=== PATIENT | female | born 1990 | race Caucasian/White ===

== ENCOUNTER 2021-11-14 13:51 | Outpatient (CLI) | payer OTHER, SELFPAY ==
--- OUTSIDE RECORDS SUMMARY | 2021-11-14 13:57 | XMS_ITS | Clinical Summary ---
:1990 Author Organization [facility] [place] [address] Care Team Providers Name Role Phone Unavailable Primary Care Provider Unavailable Allergies No known active allergies Medications No known medications Active Problems No known active problems Social History Tobacco Use Types Packs/Day Years Used Date Never Assessed Sex Assigned at Date Recorded Not on file Obstetrics History Last Filed Vital Signs Vital Sign Reading Time Taken Comments Blood Pressure 96/62 04/17/2021 8:26 AM WRAPPING MACHINE OPERATOR Pulse 96 04/17/2021 8:26 AM WRAPPING MACHINE OPERATOR Temperature 36.6 ??C (97.8 ??F) 04/17/2021 8:26 AM WRAPPING MACHINE OPERATOR Respiratory Rate 18 04/17/2021 8:26 AM WRAPPING MACHINE OPERATOR Oxygen Saturation 97% 04/17/2021 8:26 AM WRAPPING MACHINE OPERATOR Inhaled Oxygen Concentration - - Weight 63.1 kg (139 lb 3.2 oz) 04/17/2021 8:26 AM WRAPPING MACHINE OPERATOR Height - - Body Mass Index - - Plan of Treatment Health Maintenance Due Date Last Done Comments Tdap 02/19/2003 Depression screening for age 12+ 2004 BMI (ht and wt on same day) for age 18+ 02/19/2010 Hepatitis C screening for age 18-79 02/19/2010 Tetanus booster 2012 COVID-19 vaccine series (3 - Booster for 03/26/2021 021, 09/26/2020 Moderna series) Influenza for age 9-49 11/01/2021 Pap test for age 21-65 02/02/2023 02/03/2020 Results Not on filefrom Last 3 Months Insurance Payer Benefit Plan / Subscriber ID Effective Dates Phone Addre ss Type Group MEDICA MEDICA CHOICE [id number] 2021-Present [address] [address] [place] [address] Guarantor Name Account Type Relation to Date of Phone Billing Address Patient Diandra,Katherine J Personal/Family Self 1990 [address] [facility] ([place]) [place] [address]
--- NOTE | 2021-11-14 14:00 | CRLHL7_ITS ---
For Patients: As a result of the Century Cures Act, medical imaging exams and procedure reports are released immediately into your electronic medical record. You may view this report before your referring provider. If you have questions, please contact your health care provider. INDICATION: Irregular cycles after . Dating and viability. LMP 09/12/2021. COMPARISON: None. TECHNIQUE: Real-time freeman-scale imaging of the pelvis was performed. FINDINGS: Sonographic imaging demonstrates a single living intrauterine gestation. The embryo has a regular cardiac rate measuring 157 beats per minute. The embryo`s crown-rump length measurement of 1.2 cm corresponds to a gestational age of 7 weeks 3 days with a sonographic due date of 06/30/2022. There is a normal-appearing yolk sac. The placenta has not yet developed. No evidence of a perigestational hemorrhage. The cervix appears closed. The right ovary measures 4.6 x 3.1 x 3.9 cm and the left ovary measures 3.2 x 1.7 x 2.1 cm. There is a 3.5 x 2.8 x 3.8 cm thick-walled cyst in the right ovary which likely represents a corpus luteum. No free fluid in the cul-de-sac. IMPRESSION: 1. Single living intrauterine gestation with crown rump length 1.2 cm which corresponds to a gestational age of 7 weeks 3 days with a sonographic due date of 06/30/2022. 2. The clinical gestational age by LMP is 9 weeks 0 days. 3. 3.8 cm corpus luteum in the right ovary. Dictated by Carolyn Sargent MD @ 11/15/2021 2:33:30 AM (Electronically Signed)
== END 2021-11-14 13:52 | disposition home or self-care (01) ==
LOC: US 13:56
PROVIDERS: Visit Provider Registered Nurse
DX: N92.6 Irregular menstruation, unspecified (principal); O34.81 Maternal care for other abnormalities of pelvic organs, first trimester; N83.11 Corpus luteum cyst of right ovary; Z3A.01 Less than 8 weeks gestation of pregnancy
CPT/HCPCS: 76817; 86592; 86703; 86762; 86803; 86850; 86900; 86901; 87086; 87340; 87491; 87591

== ENCOUNTER 2021-12-17 12:26 | Outpatient (CLI) | payer OTHER, SELFPAY ==
--- OUTSIDE RECORDS SUMMARY | 2021-12-17 12:35 | XMS_ITS | Clinical Summary ---
:1990 Author Organization [facility] [place] [address] Care Team Providers Name Role Phone Unavailable Primary Care Provider Unavailable Allergies No known active allergies Medications No known medications Active Problems No known active problems Social History Tobacco Use Types Packs/Day Years Used Date Never Assessed Sex Assigned at Date Recorded Not on file Obstetrics History Last Filed Vital Signs Vital Sign Reading Time Taken Comments Blood Pressure 96/62 04/17/2021 8:26 AM SALES AGENT INSURANCE Pulse 96 04/17/2021 8:26 AM SALES AGENT INSURANCE Temperature 36.6 ??C (97.8 ??F) 04/17/2021 8:26 AM SALES AGENT INSURANCE Respiratory Rate 18 04/17/2021 8:26 AM SALES AGENT INSURANCE Oxygen Saturation 97% 04/17/2021 8:26 AM SALES AGENT INSURANCE Inhaled Oxygen Concentration - - Weight 63.1 kg (139 lb 3.2 oz) 04/17/2021 8:26 AM SALES AGENT INSURANCE Height - - Body Mass Index - - Plan of Treatment Health Maintenance Due Date Last Done Comments Tdap 02/19/2003 Depression screening for age 12+ 2004 BMI (ht and wt on same day) for age 18+ 02/19/2010 Hepatitis C screening for age 18-79 02/19/2010 Tetanus booster 2012 COVID-19 vaccine series (3 - Booster for 12/19/2020 021, 09/26/2020 Moderna series) Influenza for age 9-49 11/01/2021 Pap test for age 21-65 02/02/2023 02/03/2020 Results Not on filefrom Last 3 Months Insurance Payer Benefit Plan / Subscriber ID Effective Dates Phone Addre ss Type Group MEDICA MEDICA CHOICE [id number] 2021-Present [address] [address] [place] [address] Guarantor Name Account Type Relation to Date of Phone Billing Address Patient Diandra,Katherine J Personal/Family Self 1990 [address] [facility] ([place]) [place] [address]
--- NOTE | 2021-12-17 13:00 | CRLHL7_ITS ---
For Patients: As a result of the Cures Act, medical imaging exams and procedure reports are released immediately into your electronic medical record. You may view this report before your referring provider. If you have questions, please contact your health care provider. Indication: Confirm embryonic demise. Technique: Sonography of the gravid uterus was performed. The study was performed by grayscale Doppler. Transvaginal scanning was performed. Comparison: A prior study dated November 14, 2021. Findings: A pole is identified measuring 1.7 centimeters. No cardiac activity or activity was noted by real-time or by Doppler. The ovaries are normal in size. There is re- demonstration of a corpus luteum cyst of in the right ovary. There is no free fluid in the cul-de-sac. The gestational tissue is abnormal and has a multi-cystic vesicular appearance raising the possibility of gestational trophoblastic disease. Impression: 1. Nonviable intrauterine . A pole is noted measuring 1.7 centimeters without cardiac activity or motion by real-time or by Doppler. 2. Gestational tissue lining the endometrial cavity is abnormal and multi cystic with a somewhat vesicular appearance. This raises the possibility of gestational trophoblastic disease. 3. Corpus luteum cyst of in the right ovary. Dictated by Estrada Mike MD @ 12/17/2021 1:53:15 PM (Electronically Signed)
== END 2021-12-17 12:27 | disposition home or self-care (01) ==
LOC: US 12:26
PROVIDERS: Visit Provider Obstetrics & Gynecology
DX: O02.1 Missed abortion (principal); N83.201 Unspecified ovarian cyst, right side
CPT/HCPCS: 76817

== ENCOUNTER 2021-12-18 12:42 | Day surgery (SDC) | payer OTHER, SELFPAY ==
[2021-12-18 12:59] VITALS: BMI 19.9
[2021-12-18 13:03] VITALS: BP 88/56; PULSE 86; RESP 16; TEMP 37; O2SAT 97
[2021-12-18] MEDS: SODIUM CHLORIDE 0.9 % (FLUSH) 10 ML SYRINGE IVF (13:30)
[2021-12-18] MEDS: LACTATED RINGERS 1000 ML 1,000 ML 100 ML IV ×2 (13:30→16:03)
[2021-12-18 13:58] LABS: Hemoglobin* 13.6 gm/dL (12.0-16.0)
[2021-12-18] MEDS: DOXYCYCLINE HYCLATE 100 MG CAPSULE 200 MG PO (14:45)
[2021-12-18] MEDS: LIDOCAINE 1% MDV 20 ML INJECTION (16:05)
[2021-12-18 16:30] VITALS: BP 93/83; PULSE 85; RESP 16; TEMP 37; O2SAT 99
--- NOTE | 2021-12-18 16:40 | W.ANESCHARGE ---
Anesthesia Charges Start Date/Time Anesthesia Start Date: 12/18/21 Anesthesia Start Time: 15:42 Stop Date/Time Anesthesia Stop Date: 12/18/21 Anesthesia Stop Time: 16:32 Summary Emergency: No
--- NOTE | 2021-12-18 16:40 | W.PM.GYNPROC ---
Procedure Note Date Seen: 12/18/21 Procedure Details: Preoperative diagnosis: Missed at 8 weeks by CRL Postoperative diagnosis: Same Procedure: Suction uterine curettage Surgeon: Charla Bonner MD Anesthesia: Monitored anesthesia care, paracervical block IV fluids: 1200 mL crystalloid EBL: 10 mL Urine output: Approximately 10 mL by straight catheterization Findings: 1. Exam under anesthesia revealed a mobile, anteverted uterus that was consistent in size with 8-10 weeks' gestation. There are no palpable adnexal masses. 2. Moderate amount of products of conception returned with suction curettage. Complications: None Procedure in detail: Patient was taken to the operating with IV running. She had received a single oral dose of doxycycline in preoperative prophylaxis. She was placed in dorsal lithotomy position. Monitored anesthesia care was administered. She was prepped and draped in the usual sterile fashion. Her bladder was straight catheterized. Exam under anesthesia was performed for the above-noted findings. Speculum was inserted. Cervix was grasped along its anterior lip with a single-tooth tenaculum. Paracervical block was performed with a total of 10 mL of 1% lidocaine. The cervix was serially dilated to 10 Albanian. A size 9 rigid suction cannula was then passed through the cervix to the uterine fundus. Suction was applied, and the suction cannula was withdrawn along the path of insertion. This was repeated 2 more times, without obvious return of products of conception after the last pass. Thereafter, sharp curettage was performed circumferentially, and a gritty texture was noted throughout. Minimal tissue was obtained with curettings. Procedure was deemed complete. The tenaculum was removed from the anterior lip the cervix. Hemostasis of the right cervical puncture site from the tenaculum was treated with silver nitrate. The puncture site on the left cervix continued to bleed, and this was successfully addressed with a single [id number] suture of 2-0 Vicryl. The speculum was then removed from the vagina. Patient tolerated procedure well and was taken recovery area in stable condition.
[2021-12-18 16:45] VITALS: BP 109/99; PULSE 64; RESP 16; TEMP 37; O2SAT 99
[2021-12-18 17:00] VITALS: BP 100/73; PULSE 68; RESP 16; TEMP 37; O2SAT 100
[2021-12-18 17:15] VITALS: BP 107/72; PULSE 68; RESP 16; TEMP 37; O2SAT 100
[2021-12-18 17:30] VITALS: BP 106/72; PULSE 68; RESP 16; TEMP 37; O2SAT 100
--- NOTE | 2021-12-18 18:40 | PC.NURSE ---
shift note [id number] Pt. up to floor recovering from DNC from SDS, pt. alert and oriented x4, accompanied by spouse. Pt. rated 0/10 pain, no N/V/SOB or dizziness. Pt. voided well. Tolerated ice chips, water and some food. Discharge instructions given and signed. Pt's IV removed intact. Pt. discharged to home at 1820 via wheelchair accompanied by spouse.
== END 2021-12-18 18:20 | disposition home or self-care (01) ==
LOC: OR 12:42 → MEDSURG 16:40
PROVIDERS: Visit Provider Obstetrics & Gynecology
PROC: (CPT 59820; principal; 2021-12-18 13:00)
DX: O02.1 Missed abortion (principal); Z3A.08 8 weeks gestation of pregnancy
CPT/HCPCS: 59820; 00940; 01965; 36415; 85018; 86850; 86900; 86901; 88271; 88275; 88305; 88342; A9270; J1100; J1885; J2250; J2405; J2704; J3010; J7120

== ENCOUNTER 2021-12-21 11:47 | Outpatient (CLI) | payer OTHER, SELFPAY ==
--- OUTSIDE RECORDS SUMMARY | 2021-12-21 12:00 | XMS_ITS | Clinical Summary ---
:1990 Author Organization [facility] [place] [address] Care Team Providers Name Role Phone Unavailable Primary Care Provider Unavailable Allergies No known active allergies Medications No known medications Active Problems No known active problems Encounters Date Type Specialty Care Team Description 12/19/2021 Lab Requisition Charla Bonner MD from Last 3 Months Social History Tobacco Use Types Packs/Day Years Used Date Never Assessed Sex Assigned at Date Recorded Not on file Obstetrics History Last Filed Vital Signs Vital Sign Reading Time Taken Comments Blood Pressure 96/62 04/17/2021 8:26 AM VEGETABLE THINNER Pulse 96 04/17/2021 8:26 AM VEGETABLE THINNER Temperature 36.6 ??C (97.8 ??F) 04/17/2021 8:26 AM VEGETABLE THINNER Respiratory Rate 18 04/17/2021 8:26 AM VEGETABLE THINNER Oxygen Saturation 97% 04/17/2021 8:26 AM VEGETABLE THINNER Inhaled Oxygen Concentration - - Weight 63.1 kg (139 lb 3.2 oz) 04/17/2021 8:26 AM VEGETABLE THINNER Height - - Body Mass Index - - Plan of Treatment Health Maintenance Due Date Last Done Comments Tdap 02/19/2003 Depression screening for age 12+ 2004 BMI (ht and wt on same day) for age 18+ 02/19/2010 Hepatitis C screening for age 18-79 02/19/2010 Tetanus booster 2012 COVID-19 vaccine series (3 - Booster for 12/19/202010/24/ 021, 09/26/2020 Moderna series) Influenza for age 9-49 11/01/2021 Pap test for age 21-65 02/02/2023 02/03/2020 Results Not on filefrom Last 3 Months Insurance Payer Benefit Plan / Subscriber ID Effective Dates Phone Addre ss Type Group MEDICA MEDICA CHOICE [id number] 2021-Present [address] [address] [place] [address] Guarantor Name Account Type Relation to Date of Phone Billing Address Patient Katherine Jim Personal/Family Self 1990 [address] [facility] (Home) [place] [address]
== END 2021-12-21 11:48 | disposition home or self-care (01) ==
PROVIDERS: Visit Provider Obstetrics & Gynecology
DX: B99.9 Unspecified infectious disease (principal); N71.9 Inflammatory disease of uterus, unspecified
CPT/HCPCS: 87070; 87186

== ENCOUNTER 2021-12-21 14:37 | Inpatient (IN) | payer OTHER, SELFPAY ==
--- NOTE | 2021-12-21 12:00 | CRLHL7_ITS ---
For Patients: As a result of the Century Cures Act, medical imaging exams and procedure reports are released immediately into your electronic medical record. You may view this report before your referring provider. If you have questions, please contact your health care provider. INDICATION: COMPARISON: 12/17/2021 TECHNIQUE: 2D freeman scale and color Doppler images were acquired of the pelvis using a transabdominal approach. FINDINGS: Sonographic images demonstrate a normal size and smooth outer contour of the uterus. Uterus measures 9.9 cm in length by 7.1 cm in AP diameter by 9.1 cm in transverse dimension. The myometrium has a normal uniform echotexture. Diffuse heterogeneous echotexture within the endometrial cavity noted with reticular morphology and no vascular flow. The endometrium measures up to 4.9 cm. The ovaries are not visualized. There are no suspicious fluid collections within the cul-de-sac. IMPRESSION: Nonvascular hypoechoic material within the endometrial canal most consistent with blood products. Peripheral blood flow noted likely represents reactive blood flow in the adjacent myometrium. Dictated by Edd Soler MD @ 12/21/2021 12:43:16 PM (Electronically Signed)
--- OUTSIDE RECORDS SUMMARY | 2021-12-21 12:20 | XMS_ITS | Clinical Summary ---
:1990 Author Organization [facility] [place] [address] Care Team Providers Name Role Phone Unavailable [...] Comments Blood Pressure 96/62 04/17/2021 8:26 AM THERMOCOUPLE TESTER Pulse 96 04/17/2021 8:26 AM THERMOCOUPLE TESTER Temperature 36.6 ??C (97.8 ??F) 04/17/2021 8:26 AM THERMOCOUPLE TESTER Respiratory Rate 18 04/17/2021 8:26 AM THERMOCOUPLE TESTER Oxygen Saturation 97% 04/17/2021 8:26 AM THERMOCOUPLE TESTER Inhaled Oxygen Concentration - - Weight 63.1 kg (139 lb 3.2 oz) 04/17/2021 8:26 AM THERMOCOUPLE TESTER Height - - Body Mass Index - [...] Addre ss Type Group MEDICA MEDICA CHOICE [id number] 2021-Present [address] [address] [place] [address] Guarantor Name Account Type Relation to Date of Phone Billing Address Patient Katherine Jim Personal/Family Self 1990 [address] [facility] (Home) [place] [address]
[2021-12-21 15:30] VITALS: BP 96/65; PULSE 92; RESP 16; TEMP 37.1; O2SAT 98
--- NOTE | 2021-12-21 15:41 | PC.NURSE ---
Pt. admitted to Center from [facility] () for IV antibiotics and plan for repeat D&C tomorrow at 0900. Pt. presented to clinic for abdominal pain, fever, chills. Ultrasound found some possible retained products/clotting. Pt.'s pain on admission is under good control from oral ibuprofen taken in clinic.
--- NOTE | 2021-12-21 16:13 | PM.GYNHPNOR ---
RECRUITER SPECIALIST - H&P:HPI Medical History of Present Illness Time Seen by Provider: 16:14 Date Seen: 12/21/21 Reason for admission: pelvic pain and other (Endometritis s/p D&C on 12/18 ) Narrative: Katherine Jim is a 31 year old female being admitted for IV antibiotics and D&C in the AM with diagnosis of endometritis after suction D&C on 12/18 for a missed . See clinic note for more details as patient is a direct admit from clinic. Review of Systems Narrative: REVIEW OF SYSTEMS: GENERAL: Fatigue, chills, subjective fevers SKIN: Negative NECK: Negative RESPIRATORY: Negative BREAST: Negative CARDIOVASCULAR: Negative GASTROINTESTINAL: Negative GENITOURINARY: Significant uterine tenderness and purulent discharge MUSCULOSKELETAL: Negative NEUROLOGICAL: Negative PSYCHIATRIC: Negative ENDOCRINE: Negative HEMATOLOGIC: Negative Meds Home Medications and Allergies Allergies Allergy/AdvReac Type Severity Reaction Status Date / Time No Known Allergies Allergy Unknown Verified 12/21/21 10:54 [facility] Active Problems (Updated 12/21/21 @ 17:54 by Destiny Cardona MD) Endometritis (Acute) N71.9 Retained products of conception (Acute) Missed ab (Acute) O02.1 Chronic constipation (Acute) K59.09 Heterozygous factor V Leiden mutation (Acute) D68.51 Medical History (Updated 12/21/21 @ 17:54 by Destiny Cardona MD) Missed ab Thrombosed external hemorrhoids Surgical History H/O wisdom tooth extraction Status post hemorrhoidectomy (09/08/20) Status post primary low transverse section (09/08/20) Family History Mother Factor V Leiden mutation Cardiovascular disease Pulmonary embolism Maternal Grandmother DVT (deep venous thrombosis) Paternal Grandfather DVT (deep venous thrombosis) Father Alcohol dependence Family history of testicular cancer Aunt Alcohol dependence Other FH: thromboembolic disease Social History Narrative: Relationship history: , Spouse Abran Lives with: Abran, son Ronaldo, 2 cats. Education: Bachelor's degree Employment: Paraprofessional Tobacco: No. Lifetime nonsmoker E-cigarettes: No Illicit/recreational drugs: no Alcohol: Yes. 1 serving/day Dietary restriction(s): none Concern for safety at home or work: No Exercise: Jog/walk/yoga/weights 4-5 days/week. Smoking Status: Never smoker Do you use any of these nicotine containing products: None Second hand tobacco smoke exposure: No How often do you have a drink containing alcohol: never How often do you have six or more drinks on one occasion: Never AUDIT-C Alcohol total score: 0 Non-prescribed substance use: denies use Caffeine: Yes (coffee 1 cup daily) Are you using contraception or practicing any form of control: No service: No Reproductive Health History : 2 Para: 1 # of abortions spontaneous: 0 # of abortions induced: 0 RECRUITER SPECIALIST - Exam Physical Exam: Vital signs: Temp Pulse Resp BP Pulse Ox O2 Del Method 98.8 F 92 16 96/65 98 12/21/21 15:30 12/21/21 15:30 12/21/21 15:30 12/21/21 15:30 12/21/21 15:30 12/21/21 15:30 Narrative: Physical exam: General: No acute distress Psych: Alert and oriented x3, full affect HEENT: Normocephalic, atraumatic Heart: Regular rate and rhythm, no murmur rub or gallop Lungs: Clear to auscultation bilaterally Abdomen:? Significant tenderness the suprapubic area and along the uterine contour. Lower extremities:? No edema or erythema Pelvic exam (performed in clinic):? Mons normal, clitoris normal, urethral meatus normal. Labia minora and majora normal in appearance bilaterally. Perineum and anus normal appearance.? Vaginal introitus normal appearance - thick yellow discharge noted at vaginal introitus.? Vagina pink and well rugated with yellow discharge. Cervix pink and without lesion.? Bimanual exam reveals uterus fells full and extremely tender all along the uterine contour.? Positive cervical motion tenderness. Uterus is mobile and anteverted. Size is enlarged to about 9 weeks.? No palpable adnexal masses or tenderness. Assessment and Plan Assessment and plan (1) Endometritis: Status: Acute Assessment and Plan: TVUS today showed:? Nonvascular hypoechoic material within the endometrial canal most consistent with blood clots.? Her endometrial cavity is diffusely heterogenous with reticular morphology.? The endometrium measures up to 4.9 cm. Plan - Labs ordered - Admit for IV antibiotics - IV clindamycin 900 mg Q 8 hours and gentamicin 5 mg/kg Q 24 hours. Would continue IV antibiotics for at least 24 hours - I discussed with my colleague, Dr. Tanvi Barraza, who is on-call tomorrow and review the case with her. We both agreed that Katherine would benefit from another dilation curettage to evacuate the remaining clots. Her surgery is scheduled for 9:00 a.m. tomorrow. D&C will be done under ultrasound guidance. - OR team notified
[2021-12-21] MEDS: LACTATED RINGERS 1000 ML 1,000 ML 125 ML IV (16:32)
[2021-12-21 16:59] LABS: SARS PCR* Negative SARS-CoV-2 (Negative)
[2021-12-21 17:27] LABS: Basophils Absolute Auto 0.02 K/uL (0.00-0.30); Basophils Percent Auto 0.4 % (0.0-3.0); Eosinophils Absolute Auto 0.08 K/uL (0.00-0.50); Eosinophils Percent Auto 1.5 % (0.0-7.0); Hematocrit 34.5 % (33.0-51.0); Hemoglobin* 11.7 gm/dL (12.0-16.0); Immature Granulocytes Abs Auto 0.01 K/uL (0.00-0.30); Lymphocytes Percent Auto 16.7 % (20-44); Mean Corpuscular HGB Conc 34 gm/dL (32-36); Mean Corpuscular Hemoglobin 30 pg (26-34); Mean Corpuscular Volume 89 fL (80-100); Monocytes Percent Auto 10.1 % (0.0-11.0); Neutrophils Absolute Auto 3.88 K/uL (1.7-7.0); Neutrophils Percent Auto 71.1 % (42.0-72.0); Platelet Count* 185 K/uL (140-440); RDW Coefficient of Variation % 13.2 % (11.5-15.5); Red Blood Count 3.86 m/uL (4.00-5.20); White Blood Count* 5.45 K/uL (4.50-11.00)
[2021-12-21 17:31] LABS: Slide Review Reflex No
[2021-12-21 17:41] LABS: Albumin* 4.1 g/dL (3.3-5.0); Chloride* 104 mmol/L (96-114); Sodium* 137 mmol/L (135-149)
[2021-12-21 17:42] LABS: Potassium* 3.8 mmol/L (3.6-5.1)
[2021-12-21 17:44] LABS: Alanine Aminotransferase* 9 U/L (4-35); Alkaline Phosphatase* 48 U/L (40-150); Aspartate Amino Transferase* 15 U/L (12-35); Bilirubin Total* 1.7 mg/dL (0.1-1.5); Blood Urea Nitrogen* 10 mg/dL (5-24); Carbon Dioxide* 24 mmol/L (20-32); Creatinine* 0.7 mg/dL (0.5-1.5); Est. Creatinine Clearance* 110.81; Estimated Glomerular Filt Rate 120 ml/min; Glucose* 101 mg/dL (60-115); Total Protein* 6.9 g/dL (6.0-8.3)
[2021-12-21 17:45] LABS: Calcium* 8.8 mg/dL (8.4-10.6)
[2021-12-21] MEDS: IBUPROFEN 600 MG TABLET PO (19:39)
[2021-12-21 20:00] VITALS: TEMP 37.4
[2021-12-21 23:56] VITALS: PULSE 91; RESP 16
[2021-12-22] VITALS (12 sets, daily range): BP systolic 92–114; BP diastolic 52–84; PULSE 62–91; RESP 14–20; TEMP 36.3–36.8; O2SAT 94–100
[2021-12-22] MEDS: LACTATED RINGERS 1000 ML 1,000 ML 125 ML IV (07:29)
[2021-12-22] MEDS: miSOPROStoL 800 MCG/4 TABLET PR (09:41)
[2021-12-22] MEDS: SILVER NITRATE APPLICATOR 1 EACH STICK..EA. TOPICAL (09:42)
[2021-12-22] MEDS: LIDOCAINE 0.5%-EPI 1:200,000 50 ML VIAL INJECTION (09:44)
--- NOTE | 2021-12-22 09:57 | W.ANESCHARGE ---
Anesthesia Charges Start Date/Time Anesthesia Start Date: 12/22/21 Anesthesia Start Time: 09:14 Stop Date/Time Anesthesia Stop Date: 12/22/21 Anesthesia Stop Time: 09:57 Summary Emergency: Yes
[2021-12-22] MEDS: ACETAMINOPHEN 500 MG TABLET 1000 MG PO (10:24)
[2021-12-22] MEDS: HYDROmorphone 0.5 mg/0.5 ml inj IVP (10:36)
--- NOTE | 2021-12-22 11:00 | W.PM.GYNPROC ---
Procedure Note Date Seen: 12/22/21 Procedure Details: Preop diagnosis: Endometritis, status post suction D&C as management first-trimester missed AB Postop diagnosis: Same, large amount of blood clots of the uterus Name of procedure: Suction dilation and curettage under ultrasound guidance Surgeon: Tanvi [employer] Professor: None Complications: None EBL: About 200mL intrauterine blood clots evacuated, procedure:25mL Drains: None Findings: Speculum exam: Evidence of cervical laceration from 7-10 o clock, this was seen to be bleeding mildly. Evidence of suture material at around 2-3 o clock. Cervix looks closed, no abnormal discharge seen at the moment. After cervical dilation, immediate release of dark old blood seen. Same output obtained from suction, about 200mL of blood clots evacuated from the uterus. Risks, benefits, alternatives, and indications of the procedure were discussed with the patient. She voiced an understanding of the procedure and signed the consent. The patient was taken to the OR were MAC anesthesia was administered without difficulty. She was placed in the dorsal lithotomy position with Austen type stirrups. The patient was prepared and draped in the normal sterile fashion. A bivalved speculum was inserted in the posterior aspect of the vagina. Findings as above. 5 mL of 0.5% Marcaine with Epi was injected in the anterior lip of cervix, the single-tooth tenaculum was used to grasp the anterior lip of the cervix. Under ultrasound guidance, the cervix was sequentially dilated to 9mm utilizing Hegar dilators. A 8 mm suction curette was advanced to the uterine fundus. The suction was then started. The blood clots were evacuated with the curette rotating on the outward movement. This was continued until the endometrium looked again thin and homogenous. Again, always under ultrasound guidance. The tenaculum was removed from the cervix and with pressure and silver nitrate hemostasis was secured on tenaculum puncture sites as well as in the previously described cervical laceration. 800mcg rectal cytotec placed at the end of procedure for prevention of reaccumulation of blood on the endometrial cavity again. The patient tolerated the procedure well. Instrument and sponge counts were correct x2. Patient was taken to the recovery room in a stable condition. The patient will go home after recovering from anesthesia and meeting all the criteria for discharge. She was given the instructions regarding follow-up visit [facility] 2 [facility] and a prescription for pain medication.
[2021-12-22] MEDS: IBUPROFEN 600 MG TABLET PO (13:32)
== END 2021-12-22 15:55 | disposition home or self-care (01) | DRG 779 ==
LOC: OB 14:39
PROVIDERS: Obstetrics & Gynecology; Admitting Provider Obstetrics & Gynecology; Visit Provider Obstetrics & Gynecology
DX: O03.5 Genital tract and pelvic infection following complete or unspecified spontaneous abortion (principal); B95.2 Enterococcus as the cause of diseases classified elsewhere; B96.20 Unspecified Escherichia coli [E. coli] as the cause of diseases classified elsewhere; R10.2 Pelvic and perineal pain
CPT/HCPCS: 59812; 00940; 36415; 76856; 76998; 80053; 84443; 85025; 87635; 99140; A9270; J1100; J1170; J1580; J1885; J2250; J2405; J2704; J3010; J7120; S0077

== ENCOUNTER 2021-12-24 09:27 | Outpatient (CLI) | payer OTHER, SELFPAY ==
--- OUTSIDE RECORDS SUMMARY | 2021-12-24 09:32 | XMS_ITS | Clinical Summary ---
:1990 Author Organization [facility] [place] [address] Care Team Providers Name Role Phone Unavailable [...] Comments Blood Pressure 96/62 04/17/2021 8:26 AM INTERNATIONAL ACCOUNTANT Pulse 96 04/17/2021 8:26 AM INTERNATIONAL ACCOUNTANT Temperature 36.6 ??C (97.8 ??F) 04/17/2021 8:26 AM INTERNATIONAL ACCOUNTANT Respiratory Rate 18 04/17/2021 8:26 AM INTERNATIONAL ACCOUNTANT Oxygen Saturation 97% 04/17/2021 8:26 AM INTERNATIONAL ACCOUNTANT Inhaled Oxygen Concentration - - Weight 63.1 kg (139 lb 3.2 oz) 04/17/2021 8:26 AM INTERNATIONAL ACCOUNTANT Height - - Body Mass Index - [...] Pap test for age 21-65 02/02/2023 02/03/2020 Procedures Procedure Name Priority Date/Time Associated Diagnosis Comme nts LAB TRACKING EVENT Routine 12/18/2021 4:10 PM CDT from Last 3 Months Results LAB TRACKING EVENT (12/18/2021 4:10 PM CDT) Specimen Anatomical Collection Method Collection Time Receive d Time (Source) Location / / Volume Laterality Other (Other) Client Collect / 12/18/2021 4:10 PM 12/01 3:34 Unknown CDT PM CDT Charla Bonner MD LAB BILL ONLY Performing Organization Address City/State/ZIP Code Phon e Number [facility] [address] [place] [address] [facility] LABORATORY from Last 3 Months Insurance Payer Benefit Plan / Subscriber ID Effective Dates Phone Addre ss Type Group MEDICA MEDICA CHOICE [id number] 2021-Present [address] [address] [place] [address] Guarantor Name Account Type Relation to Date of Phone Billing Address Patient Katherine Jim Personal/Family Self 1990 [address] (Home) [place] [address]
== END 2021-12-24 09:28 | disposition home or self-care (01) ==
LOC: LAB 09:31
PROVIDERS: Visit Provider Obstetrics & Gynecology
DX: R10.2 Pelvic and perineal pain (principal)
CPT/HCPCS: 87086

== ENCOUNTER 2021-12-27 12:19 | Outpatient (CLI) | payer OTHER, SELFPAY ==
--- OUTSIDE RECORDS SUMMARY | 2021-12-27 14:02 | XMS_ITS | Clinical Summary ---
:1990 Author Organization [employer] [place] [address] Care Team Providers Name Role Phone Unavailable Primary Care Provider Unavailable Allergies No known active allergies Medications No known medications Active Problems No known active problems Encounters Date Type Specialty Care Team Description 12/24/2021 Lab Requisition Unknown, Doctor 12/19/2021 Lab Requisition Charla Bonner MD from Last 3 Months Social History Tobacco Use Types Packs/Day Years Used Date Never Assessed Sex Assigned at Date Recorded Not on file Obstetrics History Last Filed Vital Signs Vital Sign Reading Time Taken Comments Blood Pressure 96/62 04/17/2021 8:26 AM OBSTETRICS GYNECOLOGY PHYSICIAN Pulse 96 04/17/2021 8:26 AM OBSTETRICS GYNECOLOGY PHYSICIAN Temperature 36.6 ??C (97.8 ??F) 04/17/2021 8:26 AM OBSTETRICS GYNECOLOGY PHYSICIAN Respiratory Rate 18 04/17/2021 8:26 AM OBSTETRICS GYNECOLOGY PHYSICIAN Oxygen Saturation 97% 04/17/2021 8:26 AM OBSTETRICS GYNECOLOGY PHYSICIAN Inhaled Oxygen Concentration - - Weight 63.1 kg (139 lb 3.2 oz) 04/17/2021 8:26 AM OBSTETRICS GYNECOLOGY PHYSICIAN Height - - Body Mass Index - [...] 02/03/2020 Procedures Procedure Name Priority Date/Time Associated Comments Diagnosis PATH TISSUE EXAM Routine 12/22/2021 9:35 AM Resul ts for this CDT procedure are i n the results section. LAB TRACKING EVENT Routine 12/18/2021 4:10 PM CDT PATH TISSUE EXAM Routine 12/18/2021 10:10 Results for this AM CDT procedure are i n the results section. 13 Routine 12/18/2021 10:10 AM CDT X/Y/18 Routine 12/18/2021 10:10 AM CDT CYTOGENETIC PRODUCTS Routine 12/18/2021 10:10 Res ults for this OF CONCEPTION STUDIES AM CDT proced ure are in the results section. from Last 3 Months Results PATH TISSUE EXAM (12/22/2021 9:35 AM CDT)Only the most recent of2 resultswithin the time period is included. Component Value Ref Test Analysis Performed At [facility] gist Range Method Time Signature Case Report Pathology Report ?Case: [id number] ? 12/25/2021 HERNAN Authorizing Provider: ??Unkn own, Doctor ?Collected: ? 12/22/2021 0935 ? 4:45 PM HEAL TH Ordering Location: ? L CENTRAL LAB ?Received: ?12/24/2021 194 ? CDT SUZANNA MESA Pathologist: ? Brooke Quintero MD ? ENTRAL Specimen: ?Endometrial C urettings ? LABORATORY Final A) ENDOMETRIUM, CURETTAGE: 12/25/2021 ADAM LEONILA Electronically Diagnosis 1. Predominantly blood (>95%) 4:45 PM HEALTH signed by Leon, 2. Rare, small foci of glandular epithelium, see comment CDT LABORATORY-C CHACHA Wise MD on 12/02 LABORATORY at 4:45 P M Comment The specimen 12/25/2021 [facility] largely consists 4:45 PM HEALTH of blood with CDT LABORATORY-C only small foci ENTRAL of glandular LABORATORY epithelium. Aggregates of purulent inflammation (pus) are not present in the background. The glandular epithelium in the specimen may represent sampling from the cervix or lower uterine segment; however, regardless of origin, quantitatively the sampling is too limited to exclude endometritis. Please correlate to determine if additional sampling is necessary. Clinical Rule out 12/25/2021 [facility] Information endometritis 4:45 PM HEALTH CDT LABORATORY-C ENTRAL LABORATORY Gross A) Received in formalin, lab eled with the patient's name and endometrial curettings, is a 11.0 x 10.0 x 3.0 cm aggregate of clotted blood. Creative Art Therapist sections are submitted in 9 cassettes. 12/25/2021 [facility] Description 4:45 PM HEALTH Note: Approximately 35% of the specimen is submitted. CDT LABORATORY-C ENTRAL SSS 12/24/2021 LABORATORY Microscopic The final 12/25/2021 [facility] Description diagnosis is 4:45 PM HEALTH based on CDT LABORATORY-C microscopic ENTRAL examination of LABORATORY appropriate sections of all specimens. Additional 12/25/2021 [facility] Information Interpreted at [facility], Central Laboratory - [address], [place] [address] 4:45 PM HEALTH CDT LABORATORY-C ENTRAL LABORATORY Specimen Anatomical Collection Method Collection Time Receive d Time (Source) Location / / Volume Laterality Other 12/22/2021 9:35 AM 7:42 (Endometrial CDT PM CDT Curettings) Doctor Unknown PATHOLOGY/CYTOLOGY Performing Organization Address City/State/ZIP Code Phon e Number [facility] [address] [place] [address] LABORATORY-CENTRAL 1999 LABORATORY LAB TRACKING EVENT (12/18/2021 4:10 PM CDT) Specimen Anatomical Collection Method Collection Time Receive d Time (Source) Location / / Volume Laterality Other (Other) Client Collect / 12/18/2021 4:10 PM 12/01 3:34 Unknown CDT PM CDT Charla Bonner MD LAB BILL ONLY Performing Organization Address [facility]/ZIP [facility] Phon e Number [facility] [address] [place] [address] LABORATORY-CENTRAL 1999 LABORATORY X/Y/18 (12/18/2021 10:10 AM CDT) Specimen Anatomical Collection Method Collection Time Receive d Time (Source) Location / / Volume Laterality Other (Products 12/18/2021 10:10 12/22/19 22 2:55 of Conception) AM CDT PM CDT Charla Bonner MD LABORATORY Performing Organization Address [facility] Phon e Number [facility] [address] [place] [address] LABORATORY-CENTRAL 1999 LABORATORY 13/ (12/18/2021 10:10 AM CDT) Specimen Anatomical Collection Method Collection Time Receive d Time (Source) Location / / Volume Laterality Other (Products 12/18/2021 10:10 12/22/19 22 2:55 of Conception) AM CDT PM CDT Charla Bonner MD LABORATORY Performing Organization Address [facility] Phon e Number [facility] [address] [place] [address] [place] [address] LABORATORY-CENTRAL 1999 LABORATORY CYTOGENETIC PRODUCTS OF CONCEPTION STUDIES (12/18/2021 10:10 AM CDT) Component Value Ref Test Analysis Performed At [facility] gist Range Method Time Signature RFR Ploidy analysis for 12/25/2021 [facility] POC 6:54 PM HEALTH CDT LABORATORY-C ENTRAL LABORATORY TEST & RESULT AneuVysion FISH 12/25/2021 [facility] SUMMARY Panel: 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 [facility] 6:54 PM [facility] Triploidy, the double contri bution of chromosomes from one of the parents, is found in an estimated 12% of chromosomally abnormal spontaneous losses. Some triploid conceptuses may represent a CDT LABORATORY-C partial hydatidiform mole, r esulting in a slighty increased risk for persistent gestational trophoblastic disease/neoplasm (Abelino and Dominick, 2018). ENTRAL LABORATORY Clinicopathologic correlation is recommended. SOURCE Uterine contents 12/25/2021 [facility] (Paraffin Slides, 6:54 PM HEALTH Block A3 1H&E 4UNS) CDT LABORATORY -C [id number] ENTRAL LABORATORY METHODS Qualitative fluorescence in situ hybridization (FISH) analysis was performed on paraffin-embedded nuclei using the [employer] AneuVysion Multicolor DNA Probe Kit specific for detecting aneuploidy changes of 12/25/2021 [facility] chromosomes 13, 18, 21, X an d Y. The AneuVysion kit contains the following probes: CEP X (DXZ1), CEP Y (DYZ3), CEP 18 (D18Z1), LSI 13 (RB1) and LSI 21 ([id number]). 6:54 PM HEALTH CDT LABORATORY-C A minimum of 100 cells are e xamined for each probe set. Each FISH test uses a multiplex probe stain procedure. ENTRAL LABORATORY REFERENCES Jaden Roca, 12/25/2021 Feliciano Rasmussen. 6:54 PM HEALTH (2018).?Abelino CDT LABORATORY- C and Sharri's ENTRAL Chromosome LABORATORY abnormalities and genetic counseling. (5th ed.). [place], [place]: [employer]. DISCLAIMER The FDA approved 12/25/2021 [facility] Vysis AneuVysion 6:54 PM HEALTH Multicolor DNA CDT LABORATORY-C Probe Kit was ENTRAL developed and its LABORATORY performance characteristics determined by [employer]. This test incorporates minor modifications to protocol and validated by the [facility] to yield equivocal or superior performance. Specimen Anatomical Collection Method Collection Time Receive d Time (Source) Location / / Volume Laterality Other (Products 12/18/2021 10:10 12/22/19 22 2:55 of Conception) AM CDT PM CDT Charla Bonner MD PATHOLOGY/CYTOLOGY Performing Organization Address City/State/ZIP Code Phon e Number [facility] [address] [place] [address] LABORATORY-CENTRAL 2000 LABORATORY from Last 3 Months Insurance Payer Benefit Plan / Subscriber ID Effective Dates Phone Addre ss Type Group MEDICA MEDICA CHOICE [id number] 2021-Present [address] [id number] [place] [address] Guarantor Name Account Type Relation to Date of Phone Billing Address Patient Katherine Jim Personal/Family Self 1990 [address] [facility] (Home) [place] [address]
== END 2021-12-27 12:20 | disposition home or self-care (01) ==
LOC: FRMREF 13:56
PROVIDERS: Visit Provider Obstetrics & Gynecology
DX: O08.89 Other complications following an ectopic and molar pregnancy (principal)
CPT/HCPCS: 84702

== ENCOUNTER 2022-01-03 16:21 | Outpatient (CLI) | payer OTHER, SELFPAY ==
--- OUTSIDE RECORDS SUMMARY | 2022-01-03 14:28 | XMS_ITS | Clinical Summary ---
:1990 Author Organization [employer] [facility] [place] [address] Care Team Providers Name Role Phone Unavailable [...] Comments Blood Pressure 96/62 04/17/2021 8:26 AM AGILE QA TESTER Pulse 96 04/17/2021 8:26 AM AGILE QA TESTER Temperature 36.6 ??C (97.8 ??F) 04/17/2021 8:26 AM AGILE QA TESTER Respiratory Rate 18 04/17/2021 8:26 AM AGILE QA TESTER Oxygen Saturation 97% 04/17/2021 8:26 AM AGILE QA TESTER Inhaled Oxygen Concentration - - Weight 63.1 kg (139 lb 3.2 oz) 04/17/2021 8:26 AM AGILE QA TESTER Height - - Body Mass Index [...] Procedure Name Priority Date/Time Associated Comments Diagnosis LAB TRACKING EVENT Routine 12/22/2021 9:35 AM CDT PATH TISSUE EXAM Routine 12/22/2021 9:35 AM Resul ts for this CDT procedure are i n the results section. LAB TRACKING EVENT Routine 12/18/2021 4:10 PM CDT PATH TISSUE EXAM Routine 12/18/2021 10:10 Results for this AM CDT procedure are i n the results section. 13/ Routine 12/18/2021 10:10 AM CDT X/Y/18 Routine 12/18/2021 10:10 AM CDT CYTOGENETIC PRODUCTS Routine 12/18/2021 10:10 Res ults for this OF CONCEPTION STUDIES AM CDT proced ure are in the results section. from Last 3 Months Results LAB TRACKING EVENT (12/22/2021 9:35 AM CDT)Only the most recent of2 results within the time period is included. Specimen Anatomical Collection Method Collection Time Receive d Time (Source) Location / / Volume Laterality Other (Other) Client Collect / 12/22/2021 9:35 AM 12/02 7:04 Unknown CDT PM CDT Doctor Unknown LAB BILL ONLY Performing Organization Address City/State/ZIP Code Phon e Number [facility] [address] [place] [address] LABORATORY-CENTRAL 2000 LABORATORY PATH TISSUE EXAM (12/22/2021 9:35 AM CDT)Only the most recent of2 resultswithin the time period is included. Component Value Ref Test Analysis Performed At [facility] gist Range Method Time Signature Case Report Pathology Report ?Case: [id number] ? 12/25/2021 HERNAN Authorizing Provider: ??Unkn own, Doctor ?Collected: ? 12/22/2021 0935 ? 4:45 PM HEAL TH Ordering Location: ? [facility] CENTRAL LAB ?Received: ?12/24/20211941 ? CDT LA BORATORY-C Pathologist: ? Brooke Quintero MD ? ENTRAL Specimen: ?Endometrial C urettings ? LABORATORY Final A) ENDOMETRIUM, CURETTAGE: 12/25/2021 AL LEONILA Electronically Diagnosis 1. Predominantly blood (>95%) [...] x 3.0 cm aggregate of clotted blood. Diamond Saw Operator sections are submitted in 9 cassettes. 12/25/2021 [facility] Description 4:45 PM HEALTH Note: Approximately 35% of the specimen is submitted. CDT LABORATORY-C ENTRAL SSS 12/24/2021 LABORATORY Microscopic The final 12/25/2021 [facility] Description diagnosis is 4:45 PM HEALTH based on CDT LABORATORY-C microscopic ENTRAL examination of LABORATORY appropriate sections of all specimens. Additional 12/25/2021 [facility] Information Interpreted at [facility], Central Laboratory - [address], [place] [address] 4:45 PM HEALTH CDT LABORATORY-C ENTRAL LABORATORY Specimen Anatomical Collection Method Collection Time Receive d Time (Source) Location / / Volume Laterality Other 12/22/2021 9:35 AM 7:42 (Endometrial CDT PM CDT Curettings) Doctor Unknown PATHOLOGY/CYTOLOGY Performing Organization Address City/[facility]/ZIP [facility] Phon e Number [facility] [address] [place] [address] LABORATORY-CENTRAL 1999 LABORATORY X/Y/18 (12/18/2021 10:10 AM CDT) Specimen Anatomical Collection Method Collection Time Receive d Time (Source) Location / / Volume Laterality Other (Products 12/18/2021 10:10 12/22/19 22 2:55 of Conception) AM CDT PM CDT Charla Bonner MD LABORATORY Performing Organization Address [facility] Code Phon e Number [facility] [address] [place] [address] LABORATORY-CENTRAL 1999 LABORATORY (12/18/2021 10:10 AM CDT) Specimen Anatomical Collection Method Collection Time Receive d Time (Source) Location / / Volume Laterality Other (Products 12/18/2021 10:10 12/22/19 22 2:55 of Conception) AM CDT PM CDT Charla Bonner MD LABORATORY Performing Organization Address [facility] Phon e Number [facility] [address] 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 12/25/2021 [facility] 6:54 PM HEALTH Triploidy, the double contri [...] Block A3 1H&E 4UNS) CDT LABORATORY -C [id number] ENTRAL LABORATORY METHODS Qualitative fluorescence in situ hybridization (FISH) analysis was performed on paraffin-embedded nuclei using the [employer] AneuVysion Multicolor DNA Probe Kit specific for detecting aneuploidy changes of 12/25/2021 [facility] chromosomes 13, 18, 21, X an d Y. The AneuVysion kit contains the following probes: CEP X (DXZ1), CEP Y (DYZ3), CEP 18 (D18Z1), LSI 13 (RB1) and LSI 21 ([id number]). 6:54 PM HEALTH CDT LABORATORY-C A minimum of 100 cells are e xamined for each probe set. Each FISH test uses a multiplex probe stain procedure. ENTRAL LABORATORY REFERENCES Jaden Roca, 12/25/2021 Feliciano Rasmussen. 6:54 PM HEALTH (2018).?Abelino CDT LABORATORY- C and Sharri's ENTRAL Chromosome LABORATORY abnormalities and genetic counseling. (5th ed.). [place], [place]: [employer]. DISCLAIMER The FDA approved 12/25/2021 [facility] Vysis AneuVysion 6:54 PM HEALTH Multicolor DNA CDT LABORATORY-C Probe Kit was ENTRAL developed and its LABORATORY performance characteristics determined by [employer]. This test incorporates minor modifications to protocol and validated by the [facility] to yield equivocal or superior performance. Specimen Anatomical Collection Method Collection Time Receive d Time (Source) Location / / Volume Laterality Other (Products 12/18/2021 10:10 12/22/19 22 2:55 of Conception) AM CDT PM CDT Charla Bonner MD PATHOLOGY/CYTOLOGY Performing Organization Address City/State/ZIP Code Phon e Number [facility] [address] [place] [address] LABORATORY-CENTRAL 2000 LABORATORY from Last 3 Months Insurance Payer Benefit Plan / Subscriber ID Effective Dates Phone Addre ss Type Group MEDICA MEDICA CHOICE [id number] 2021-Present [address] [address] [place] [address] Guarantor Name Account Type Relation to Date of Phone Billing Address Patient Katherine Jim Personal/Family Self 1990 [address] [facility] (Home) [place] [address]
[2022-01-03 22:29] LABS: HCG Quantitative* 115.79 mIU/mL
== END 2022-01-03 16:22 | disposition home or self-care (01) ==
PROVIDERS: Visit Provider Obstetrics & Gynecology
DX: O08.89 Other complications following an ectopic and molar pregnancy (principal)
CPT/HCPCS: 84702

== ENCOUNTER 2022-01-15 15:15 | Outpatient (CLI) | payer OTHER, SELFPAY ==
--- OUTSIDE RECORDS SUMMARY | 2022-01-15 15:18 | XMS_ITS | Clinical Summary ---
:1990 Author Organization [employer] [facility] [place] [address] Care Team Providers Name Role Phone Unavailable [...] Comments Blood Pressure 96/62 04/17/2021 8:26 AM PHILOSOPHY PROFESSOR Pulse 96 04/17/2021 8:26 AM PHILOSOPHY PROFESSOR Temperature 36.6 ??C (97.8 ??F) 04/17/2021 8:26 AM PHILOSOPHY PROFESSOR Respiratory Rate 18 04/17/2021 8:26 AM PHILOSOPHY PROFESSOR Oxygen Saturation 97% 04/17/2021 8:26 AM PHILOSOPHY PROFESSOR Inhaled Oxygen Concentration - - Weight 63.1 kg (139 lb 3.2 oz) 04/17/2021 8:26 AM PHILOSOPHY PROFESSOR Height - - Body Mass Index - [...] Organization Address City/State/ZIP Code Phon e Number [facility] [address] [place] [address] LABORATORY-CENTRAL 2000 LABORATORY PATH TISSUE EXAM (12/22/2021 9:35 AM CDT)Only the most recent of2 resultswithin the time period is included. Component Value Ref Test Analysis Performed At [facility] gist Range Method Time Signature Case Report Pathology Report ?Case: [id number] ? 12/25/2021 HERNAN Authorizing Provider: ??Unkn own, Doctor ?Collected: ? 12/22/2021 0935 ? 4:45 PM HEAL TH Ordering Location: ? [facility] CENTRAL LAB ?Received: ?12/24/20211941 ? CDT LA [...] x 3.0 cm aggregate of clotted blood. Nursing Unit Manager sections are submitted in 9 cassettes. 12/25/2021 [...] - [address], [place] [address] 4:45 PM HEALTH CDT LABORATORY-C ENTRAL LABORATORY Specimen Anatomical Collection Method Collection Time Receive d Time (Source) Location / / Volume Laterality Other 12/22/2021 9:35 AM 7:42 (Endometrial CDT PM CDT Curettings) Doctor Unknown PATHOLOGY/CYTOLOGY Performing Organization Address City/[facility]/ZIP [facility] Phon e Number [facility] [address] [place] [address] LABORATORY-CENTRAL 1999 LABORATORY X/Y/18 (12/18/2021 10:10 AM CDT) Specimen Anatomical Collection Method Collection Time Receive d Time (Source) Location / / Volume Laterality Other (Products 12/18/2021 10:10 12/22/19 22 2:55 of Conception) AM CDT PM CDT Charla Bonner MD LABORATORY Performing Organization Address [facility] Code Phon e Number [facility] [address] [place] [address] LABORATORY-CENTRAL 1999 LABORATORY (12/18/2021 10:10 AM CDT) Specimen Anatomical Collection Method Collection Time Receive d Time (Source) Location / / Volume Laterality Other (Products 12/18/2021 10:10 12/22/19 22 2:55 of Conception) AM CDT PM CDT Charla Bonner MD LABORATORY Performing Organization Address [facility] Phon e Number [facility] [address] 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 _ 12/25/2021 [facility] 6:54 PM HEALTH CDT LABORATORY-C ENTRAL LABORATORY ISCN nuc 12/25/2021 [facility] radha(DXZ1x2,F43E7f8) 6:54 PM HEALTH ,(RB1,R70R324)x3 CDT LABORATORY-C ENTRAL LABORATORY INTERPRETATION The AneuVysion [...] Block A3 1H&E 4UNS) CDT LABORATORY -C [id number] ENTRAL LABORATORY METHODS Qualitative fluorescence in situ hybridization (FISH) analysis was performed on paraffin-embedded nuclei using the [employer] AneuVysion Multicolor DNA Probe Kit specific for detecting aneuploidy changes of 12/25/2021 [facility] chromosomes 13, 18, 21, X an d Y. The AneuVysion kit contains the following probes: CEP X (DXZ1), CEP Y (DYZ3), CEP 18 (D18Z1), LSI 13 (RB1) and LSI 21 ([id number]). 6:54 PM HEALTH CDT LABORATORY-C A minimum of 100 cells are e xamined for each probe set. Each FISH test uses a multiplex probe stain procedure. ENTRAL LABORATORY REFERENCES Jaden Roca, 12/25/2021 Feliciano Rasmussen. 6:54 PM HEALTH (2018).?Abelino CDT LABORATORY- C and Sharri's ENTRAL Chromosome LABORATORY abnormalities and genetic counseling. (5th ed.). [place], [place]: [employer]. DISCLAIMER The FDA approved 12/25/2021 [facility] Vysis AneuVysion 6:54 PM HEALTH Multicolor DNA CDT LABORATORY-C Probe Kit was ENTRAL developed and its LABORATORY performance characteristics determined by [employer]. This test incorporates minor modifications to protocol and validated by the [facility] to yield equivocal or superior performance. Specimen Anatomical Collection Method Collection Time Receive d Time (Source) Location / / Volume Laterality Other (Products 12/18/2021 10:10 12/22/19 22 2:55 of Conception) AM CDT PM CDT Charla Bonner MD PATHOLOGY/CYTOLOGY Performing Organization Address City/State/ZIP Code Phon e Number [facility] [address] [place] [address] LABORATORY-CENTRAL 2000 LABORATORY from Last 3 Months Insurance Payer Benefit Plan / Subscriber ID Effective Dates Phone Addre ss Type Group MEDICA MEDICA CHOICE [id number] 2021-Present [address] [address] [place] [address] Guarantor Name Account Type Relation to Date of Phone Billing Address Patient Katherine Jim Personal/Family Self 1990 [address] [facility] (Home) [place] [address]
[2022-01-15 15:35] LABS: Appearance Urine Clear (Clear); Bilirubin Urine Negative (Negative); Blood Urine Negative (Negative); Color Urine Yellow (Yellow); Glucose Urine Negative (Negative); Ketones Urine Negative (Negative); Leukocyte Esterase Urine Negative (Negative); Nitrite Urine Negative (Negative); Protein Urine Negative (Negative); Specific Gravity Urine <= 1.005 (1.000-1.030); Urobilinogen Urine 0.2 (0.2-1.0); pH Urine 5.5 (5.0-8.5)
[2022-01-15 21:03] LABS: HCG Quantitative* 25.38 mIU/mL
== END 2022-01-15 15:16 | disposition home or self-care (01) ==
LOC: LAB 15:16
PROVIDERS: Visit Provider Obstetrics & Gynecology
DX: R10.2 Pelvic and perineal pain (principal); R93.89 Abnormal findings on diagnostic imaging of other specified body structures; N83.201 Unspecified ovarian cyst, right side; N83.202 Unspecified ovarian cyst, left side; N83.02 Follicular cyst of left ovary; N83.01 Follicular cyst of right ovary
CPT/HCPCS: 36415; 81003; 84702; 87086

== ENCOUNTER 2022-01-16 07:19 | Outpatient (CLI) | payer OTHER, SELFPAY ==
--- NOTE | 2022-01-16 07:15 | CRLHL7_ITS ---
For Patients: As a result of the Century Cures Act, medical imaging exams and procedure reports are released immediately into your electronic medical record. You may view this report before your referring provider. If you have questions, please contact your health care provider. INDICATION: COMPARISON: 12/21/2021 TECHNIQUE: 2D freeman scale and color Doppler images were acquired of the pelvis using a transabdominal and transvaginal approach. Power Doppler evaluation of both ovaries also performed. FINDINGS: Sonographic images demonstrate a normal size and smooth outer contour of the uterus. Uterus measures 9.0 cm in length by 5.1 cm in AP diameter by 6.1 cm in transverse dimension. The myometrium has a normal uniform echotexture. The endometrial lining measures 10 mm in composite thickness. No endometrial fluid or evidence retained products. The right ovary measures 4.4 x 2.8 x 2.5 cm in size and the left ovary measures 3.6 x 3.0 x 3.3 cm. The ovaries demonstrate normal arterial and venous blood flow on color Doppler analysis. Normal power Doppler evaluation of both ovaries without torsion. Anechoic simple cysts/dominant follicles within each ovary measuring 2.7 cm on the left and 1.8 cm on the right. Moderate pelvic free fluid is present within the posterior cul-de-sac measuring 3.7 x 1.3 x 4.2 cm. IMPRESSION: Endometrial thickness 1 centimeter. No evidence of endometrial fluid or retained products. Interval clearing of previously noted blood products. Dominant follicle/simple cysts both ovaries. No torsion. Moderate posterior cul-de-sac free fluid. Dictated by Edd Soler MD @ 01/16/2022 10:09:19 AM (Electronically Signed)
--- OUTSIDE RECORDS SUMMARY | 2022-01-16 07:21 | XMS_ITS | Clinical Summary ---
:1990 Author Organization [employer] [facility] [place] [address] Care Team Providers Name Role Phone Unavailable [...] Comments Blood Pressure 96/62 04/17/2021 8:26 AM WELDER GUN Pulse 96 04/17/2021 8:26 AM WELDER GUN Temperature 36.6 ??C (97.8 ??F) 04/17/2021 8:26 AM WELDER GUN Respiratory Rate 18 04/17/2021 8:26 AM WELDER GUN Oxygen Saturation 97% 04/17/2021 8:26 AM WELDER GUN Inhaled Oxygen Concentration - - Weight 63.1 kg (139 lb 3.2 oz) 04/17/2021 8:26 AM WELDER GUN Height - - Body Mass Index - - Plan of Treatment Health Maintenance Due Date Last Done Comments Tdap 02/19/2003 Depression screening for age 12+ 2004 HIV for age 15-65 02/19/2007 BMI (ht and wt on same day) [...] procedure are i n the results section. 13/21 Routine 12/18/2021 10:10 AM CDT X/Y/18 Routine [...] Organization Address City/State/ZIP Code Phon e Number [facility] [address] [place] [address] LABORATORY-CENTRAL 2000 LABORATORY PATH TISSUE EXAM (12/22/2021 9:35 AM CDT)Only the most recent of2 resultswithin the time period is included. Component Value Ref Test Analysis Performed At [facility] gist Range Method Time Signature Case Report Pathology Report ?Case: [id number] ? 12/25/2021 HERNAN Authorizing Provider: ??Unkn own, Doctor ?Collected: ? 12/22/2021 0935 ? 4:45 PM HEAL TH Ordering Location: ? [facility] CENTRAL LAB ?Received: ?12/24/2021 1942 ? CDT LA DERRICK-C Pathologist: ? Brooke Quintero MD ? ENTRAL [...] x 3.0 cm aggregate of clotted blood. Miter Saw Operator sections are submitted in 9 cassettes. 12/25/2021 [facility] Description 4:45 PM HEALTH Note: Approximately 35% of the specimen is submitted. CDT LABORATORY-C ENTRAL SSS 12/24/2021 LABORATORY Microscopic The final 12/25/2021 [facility] Description diagnosis is 4:45 PM HEALTH based on CDT LABORATORY-C microscopic ENTRAL examination of LABORATORY appropriate sections of all specimens. Additional 12/25/2021 [facility] Information Interpreted at [facility], Central Laboratory - [address] [facility] [address], [place] [address] 4:45 PM HEALTH CDT LABORATORY-C ENTRAL LABORATORY Specimen Anatomical Collection Method Collection Time Receive d Time (Source) Location / / Volume Laterality Other 12/22/2021 9:35 AM 7:42 (Endometrial CDT PM CDT Curettings) Doctor Unknown PATHOLOGY/CYTOLOGY Performing Organization Address City/[facility]/ZIP Code Phon e Number [facility] [address] [place] [address] LABORATORY-CENTRAL 2000 LABORATORY X/Y/18 (12/18/2021 10:10 AM CDT) Specimen Anatomical Collection Method Collection Time Receive d Time (Source) Location / / Volume Laterality Other (Products 12/18/2021 10:10 12/22/19 22 2:55 of Conception) AM CDT PM CDT Charla Bonner MD LABORATORY Performing Organization Address City/[facility]/ZIP Code Phon e Number [facility] [address] [place] [address] LABORATORY-CENTRAL 2000 LABORATORY (12/18/2021 10:10 AM CDT) Specimen Anatomical Collection Method Collection Time Receive d Time (Source) Location / / Volume Laterality Other (Products 12/18/2021 10:10 12/22/19 22 2:55 of Conception) AM CDT PM CDT Charla Bonner MD LABORATORY Performing Organization Address City/[facility]/ZIP [facility] Phon e Number [facility] [address] 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 _ 12/25/2021 [facility] 6:54 PM HEALTH CDT LABORATORY-C ENTRAL LABORATORY ISCN nuc 12/25/2021 [facility] radha(DXZ1x2,O50V1o9) 6:54 PM HEALTH ,(RB1,C28T423)x3 CDT LABORATORY-C ENTRAL LABORATORY INTERPRETATION The AneuVysion [...] correlation is recommended. SOURCE Uterine contents 12/25/2021 [facility] (Paraffin Slides, 6:54 PM HEALTH Block A3 1H&E 4UNS) CDT LABORATORY -C [id number] ENTRAL LABORATORY METHODS Qualitative fluorescence in situ hybridization (FISH) analysis was performed on paraffin-embedded nuclei using the [employer] AneuVysion Multicolor DNA Probe Kit specific for detecting aneuploidy changes of 12/25/2021 [facility] chromosomes 13, 18, 21, X an d Y. The AneuVysion kit contains the following probes: CEP X (DXZ1), CEP Y (DYZ3), CEP 18 (D18Z1), LSI 13 (RB1) and LSI 21 ([id number]). 6:54 PM HEALTH CDT LABORATORY-C A minimum of 100 cells are e xamined for each probe set. Each FISH test uses a multiplex probe stain procedure. ENTRAL LABORATORY REFERENCES Jaden Roca, 12/25/2021 Feliciano Rasmussen. 6:54 PM HEALTH (2018).?Abelino CDT LABORATORY- C and Sharri's ENTRAL Chromosome LABORATORY abnormalities and genetic counseling. (5th ed.). [place], [place]: [employer]. DISCLAIMER The FDA approved 12/25/2021 [facility] Vysis AneuVysion 6:54 PM HEALTH Multicolor DNA CDT LABORATORY-C Probe Kit was ENTRAL developed and its LABORATORY performance characteristics determined by [employer]. This test incorporates minor modifications to protocol and validated by the [facility] to yield equivocal or superior performance. Specimen Anatomical Collection Method Collection Time Receive d Time (Source) Location / / Volume Laterality Other (Products 12/18/2021 10:10 12/22/19 22 2:55 of Conception) AM CDT PM CDT Charla Bonner MD PATHOLOGY/CYTOLOGY Performing Organization Address City/State/[facility] Code Phon e Number [facility] [employer] [address] [place] [address] LABORATORY-CENTRAL 2000 LABORATORY from Last 3 Months Insurance Payer Benefit Plan / Subscriber ID Effective Dates Phone Addre ss Type Group MEDICA MEDICA CHOICE [id number] 2021-Present [address] [address] [place] [address] Guarantor Name Account Type Relation to Date of Phone Billing Address Patient Katherine Jim Personal/Family Self 1990 [address] [facility] ([place]) [place] [address]
== END 2022-01-16 07:20 | disposition home or self-care (01) ==
LOC: US 07:20
PROVIDERS: Visit Provider Obstetrics & Gynecology
DX: R10.2 Pelvic and perineal pain (principal); R93.89 Abnormal findings on diagnostic imaging of other specified body structures; N83.01 Follicular cyst of right ovary; N83.02 Follicular cyst of left ovary
CPT/HCPCS: 76830; 76856; 93976

== ENCOUNTER 2022-01-31 13:25 | Outpatient (CLI) | payer OTHER, SELFPAY ==
--- OUTSIDE RECORDS SUMMARY | 2022-01-31 14:13 | XMS_ITS | Clinical Summary ---
:1990 Author Organization [employer] [facility] [place] [address] Care Team Providers Name Role Phone Unavailable [...] Comments Blood Pressure 96/62 04/17/2021 8:26 AM ENGINE TESTER Pulse 96 04/17/2021 8:26 AM ENGINE TESTER Temperature 36.6 ??C (97.8 ??F) 04/17/2021 8:26 AM ENGINE TESTER Respiratory Rate 18 04/17/2021 8:26 AM ENGINE TESTER Oxygen Saturation 97% 04/17/2021 8:26 AM ENGINE TESTER Inhaled Oxygen Concentration - - Weight 63.1 kg (139 lb 3.2 oz) 04/17/2021 8:26 AM ENGINE TESTER Height - - Body Mass Index [...] Organization Address City/State/ZIP Code Phon e Number [facility] [address] [place] [address] LABORATORY-CENTRAL 2000 LABORATORY PATH TISSUE EXAM (12/22/2021 9:35 AM CDT)Only the most recent of2 resultswithin the time period is included. Component Value Ref Test Analysis [facility] At [facility] gist Range Method Time Signature Case Report Pathology Report ?Case: [id number] ? 12/25/2021 HERNAN Authorizing Provider: ??Unkn own, Doctor ?Collected: ? 12/22/2021 0935 ? 4:45 PM HEAL TH Ordering Location: ? [facility] CENTRAL LAB ?Received: ?12/24/2021 1942 ? CDT [...] x 3.0 cm aggregate of clotted blood. Material Expediter sections are submitted in 9 cassettes. 12/25/2021 [facility] Description 4:45 PM HEALTH Note: Approximately 35% of the specimen is submitted. CDT LABORATORY-C ENTRAL SSS 12/24/2021 LABORATORY Microscopic The final 12/25/2021 [facility] Description diagnosis is 4:45 PM HEALTH based on CDT LABORATORY-C microscopic ENTRAL examination of LABORATORY appropriate sections of all specimens. Additional 12/25/2021 [facility] Information Interpreted at [facility], Central Laboratory - [address] [facility] [address], [place] [address] 4:45 PM HEALTH CDT LABORATORY-C ENTRAL LABORATORY Specimen Anatomical Collection Method Collection Time Receive d Time (Source) Location / / Volume Laterality Other 12/22/2021 9:35 AM 7:42 (Endometrial CDT PM CDT Curettings) Doctor Unknown PATHOLOGY/CYTOLOGY Performing Organization Address City/[facility]/ZIP Code Phon e Number [facility] [address] [place] [address] LABORATORY-CENTRAL 2000 LABORATORY X/Y/18 (12/18/2021 10:10 AM CDT) Specimen Anatomical Collection Method Collection Time Receive d Time (Source) Location / / Volume Laterality Other (Products 12/18/2021 10:10 12/22/19 22 2:55 of Conception) AM CDT PM CDT Charla Bonner MD LABORATORY Performing Organization Address City/[facility]/ZIP Code Phon e Number [facility] [address] [place] [address] LABORATORY-CENTRAL 2000 LABORATORY (12/18/2021 10:10 AM CDT) Specimen Anatomical Collection Method Collection Time Receive d Time (Source) Location / / Volume Laterality Other (Products 12/18/2021 10:10 12/22/19 22 2:55 of Conception) AM CDT PM CDT Charla Bonner MD LABORATORY Performing Organization Address City/[facility]/ZIP [facility] Phon e Number [facility] [address] 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 _ 12/25/2021 [facility] 6:54 PM HEALTH CDT LABORATORY-C ENTRAL LABORATORY ISCN nuc 12/25/2021 [facility] radha(DXZ1x2,D38J5p4) 6:54 PM HEALTH ,(RB1,S13W579)x3 CDT LABORATORY-C ENTRAL LABORATORY INTERPRETATION The AneuVysion [...] Block A3 1H&E 4UNS) CDT LABORATORY -C [id number] ENTRAL LABORATORY METHODS Qualitative fluorescence in situ hybridization (FISH) analysis was performed on paraffin-embedded nuclei using the [employer] AneuVysion Multicolor DNA Probe Kit specific for detecting aneuploidy changes of 12/25/2021 [facility] chromosomes 13, 18, 21, X an d Y. The AneuVysion kit contains the following probes: CEP X (DXZ1), CEP Y (DYZ3), CEP 18 (D18Z1), LSI 13 (RB1) and LSI 21 ([id number]). 6:54 PM HEALTH CDT LABORATORY-C A minimum of 100 cells are e xamined for each probe set. Each FISH test uses a multiplex probe stain procedure. ENTRAL LABORATORY REFERENCES Jaden Roca, 12/25/2021 Feliciano Rasmussen. 6:54 PM HEALTH (2018).?Abelino CDT LABORATORY- C and Sharri's ENTRAL Chromosome LABORATORY abnormalities and genetic counseling. (5th ed.). [place], [place]: [employer]. DISCLAIMER The FDA approved 12/25/2021 [facility] Vysis AneuVysion 6:54 PM HEALTH Multicolor DNA CDT LABORATORY-C Probe Kit was ENTRAL developed and its LABORATORY performance characteristics determined by [employer]. This test incorporates minor modifications to protocol and validated by the [facility] to yield equivocal or superior performance. Specimen Anatomical Collection Method Collection Time Receive d Time (Source) Location / / Volume Laterality Other (Products 12/18/2021 10:10 12/22/19 22 2:55 of Conception) AM CDT PM CDT Charla Bonner MD PATHOLOGY/CYTOLOGY Performing Organization Address City/State/[facility] Code Phon e Number [facility] [employer] [address] [place] [address] LABORATORY-CENTRAL 2000 LABORATORY from Last 3 Months Insurance Payer Benefit Plan / Subscriber ID Effective Dates Phone Addre ss Type Group MEDICA MEDICA CHOICE [id number] 2021-Present [address] [address] [place] [address] Guarantor Name Account Type Relation to Date of Phone Billing Address Patient Katherine Jim Personal/Family Self 1990 [address] [facility] [place] [address]
[2022-01-31 22:25] LABS: HCG Quantitative* 12.12 mIU/mL
== END 2022-01-31 13:26 | disposition home or self-care (01) ==
LOC: LAB 14:00
PROVIDERS: Visit Provider Obstetrics & Gynecology
DX: O08.89 Other complications following an ectopic and molar pregnancy (principal)
CPT/HCPCS: 36415; 84702

== ENCOUNTER 2022-02-07 14:56 | Outpatient (CLI) | payer OTHER, SELFPAY ==
--- OUTSIDE RECORDS SUMMARY | 2022-02-07 14:56 | XMS_ITS | Clinical Summary ---
:1990 Author Organization [employer] [facility] [place] [address] Care Team Providers Name Role Phone Unavailable [...] Comments Blood Pressure 96/62 04/17/2021 8:26 AM BELT MAKER Pulse 96 04/17/2021 8:26 AM BELT MAKER Temperature 36.6 ??C (97.8 ??F) 04/17/2021 8:26 AM BELT MAKER Respiratory Rate 18 04/17/2021 8:26 AM BELT MAKER Oxygen Saturation 97% 04/17/2021 8:26 AM BELT MAKER Inhaled Oxygen Concentration - - Weight 63.1 kg (139 lb 3.2 oz) 04/17/2021 8:26 AM BELT MAKER Height - - Body Mass Index - [...] Organization Address City/State/ZIP Code Phon e Number [facility] [address] [place] [address] LABORATORY-CENTRAL 2000 LABORATORY PATH TISSUE EXAM (12/22/2021 9:35 AM CDT)Only the most recent of2 resultswithin the time period is included. Component Value Ref Test Analysis Performed At [facility] gist Range Method Time Signature Case Report Pathology Report ?Case: [id number] ? 12/25/2021 HERNAN Authorizing Provider: ??Unkn own, Doctor ?Collected: ? 12/22/2021 0935 ? 4:45 PM HEAL TH Ordering Location: ? [facility] CENTRAL LAB ?Received: ?12/24/2021 1942 [...] x 3.0 cm aggregate of clotted blood. Industrial Pipefitter Journeyman sections are submitted in 9 cassettes. 12/25/2021 [facility] Description 4:45 PM HEALTH Note: Approximately 35% of the specimen is submitted. CDT LABORATORY-C ENTRAL SSS 12/24/2021 LABORATORY Microscopic The final 12/25/2021 [facility] Description diagnosis is 4:45 PM HEALTH based on CDT LABORATORY-C microscopic ENTRAL examination of LABORATORY appropriate sections of all specimens. Additional 12/25/2021 [facility] Information Interpreted at [facility], Central Laboratory - [address] [facility] [address], [place] [address] 4:45 PM HEALTH CDT LABORATORY-C ENTRAL LABORATORY Specimen Anatomical Collection Method Collection Time Receive d Time (Source) Location / / Volume Laterality Other 12/22/2021 9:35 AM 7:42 (Endometrial CDT PM CDT Curettings) Doctor Unknown PATHOLOGY/CYTOLOGY Performing Organization Address City/[facility]/ZIP Code Phon e Number [facility] [address] [place] [address] LABORATORY-CENTRAL 2000 LABORATORY X/Y/18 (12/18/2021 10:10 AM CDT) Specimen Anatomical Collection Method Collection Time Receive d Time (Source) Location / / Volume Laterality Other (Products 12/18/2021 10:10 12/22/19 22 2:55 of Conception) AM CDT PM CDT Charla Bonner MD LABORATORY Performing Organization Address City/[facility]/ZIP Code Phon e Number [facility] [address] [place] [address] LABORATORY-CENTRAL 2000 LABORATORY (12/18/2021 10:10 AM CDT) Specimen Anatomical Collection Method Collection Time Receive d Time (Source) Location / / Volume Laterality Other (Products 12/18/2021 10:10 12/22/19 22 2:55 of Conception) AM CDT PM CDT Charla Bonner MD LABORATORY Performing Organization Address City/[facility]/ZIP [facility] Phon e Number [facility] [address] 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 _ 12/25/2021 [facility] 6:54 PM HEALTH CDT LABORATORY-C ENTRAL LABORATORY ISCN nuc 12/25/2021 [facility] radha(DXZ1x2,N15A6t1) 6:54 PM HEALTH ,(RB1,E34A822)x3 CDT LABORATORY-C ENTRAL LABORATORY INTERPRETATION The AneuVysion [...] Block A3 1H&E 4UNS) CDT LABORATORY -C [id number] ENTRAL LABORATORY METHODS Qualitative fluorescence in situ hybridization (FISH) analysis was performed on paraffin-embedded nuclei using the [employer] AneuVysion Multicolor DNA Probe Kit specific for detecting aneuploidy changes of 12/25/2021 [facility] chromosomes 13, 18, 21, X an d Y. The AneuVysion kit contains the following probes: CEP X (DXZ1), CEP Y (DYZ3), CEP 18 (D18Z1), LSI 13 (RB1) and LSI 21 ([id number]). 6:54 PM HEALTH CDT LABORATORY-C A minimum of 100 cells are e xamined for each probe set. Each FISH test uses a multiplex probe stain procedure. ENTRAL LABORATORY REFERENCES Jaden Roca, 12/25/2021 Feliciano Rasmussen. 6:54 PM HEALTH (2018).?Abelino CDT LABORATORY- C and Sharri's ENTRAL Chromosome LABORATORY abnormalities and genetic counseling. (5th ed.). [place], [place]: [employer]. DISCLAIMER The FDA approved 12/25/2021 [facility] Vysis AneuVysion 6:54 PM HEALTH Multicolor DNA CDT LABORATORY-C Probe Kit was ENTRAL developed and its LABORATORY performance characteristics determined by [employer]. This test incorporates minor modifications to protocol and validated by the [facility] to yield equivocal or superior performance. Specimen Anatomical Collection Method Collection Time Receive d Time (Source) Location / / Volume Laterality Other (Products 12/18/2021 10:10 12/22/19 22 2:55 of Conception) AM CDT PM CDT Charla Bonner MD PATHOLOGY/CYTOLOGY Performing Organization Address City/State/[facility] Code Phon e Number [facility] [employer] [facility] [address] [place] [address] LABORATORY-CENTRAL 2000 LABORATORY from Last 3 Months Insurance Payer Benefit Plan / Subscriber ID Effective Dates Phone Addre ss Type Group MEDICA MEDICA CHOICE [id number] 2021-Present [address] [id number] [place] [address] Guarantor Name Account Type Relation to Date of Phone Billing Address Patient Katherine Jim Personal/Family Self 1990 [address] [facility] ([place] [place] [address]
[2022-02-07 22:41] LABS: HCG Quantitative* 10.48 mIU/mL
== END 2022-02-07 14:57 | disposition home or self-care (01) ==
PROVIDERS: Visit Provider Obstetrics & Gynecology
DX: O03.9 Complete or unspecified spontaneous abortion without complication (principal)
CPT/HCPCS: 84702

== ENCOUNTER 2022-02-14 09:04 | Outpatient (CLI) | payer OTHER, SELFPAY ==
[2022-02-14 22:53] LABS: HCG Quantitative* 7.45 mIU/mL
== END 2022-02-14 09:05 | disposition home or self-care (01) ==
LOC: FRMREF 15:23
PROVIDERS: Visit Provider Obstetrics & Gynecology
DX: O02.1 Missed abortion (principal)
CPT/HCPCS: 84702

== ENCOUNTER 2022-02-28 13:07 | Outpatient (CLI) | payer OTHER, SELFPAY ==
[2022-02-28 22:52] LABS: HCG Quantitative* 4.13 mIU/mL
== END 2022-02-28 13:08 | disposition home or self-care (01) ==
LOC: FRMREF 13:09
PROVIDERS: Visit Provider Obstetrics & Gynecology
DX: O08.89 Other complications following an ectopic and molar pregnancy (principal)
CPT/HCPCS: 84702

== ENCOUNTER 2022-05-31 15:12 | Outpatient (CLI) | payer OTHER, SELFPAY | END 2022-05-31 15:13 | disposition home or self-care (01) | PROVIDERS: PCP Obstetrics & Gynecology; Referring Provider Obstetrics & Gynecology; Visit Provider Obstetrics & Gynecology | DX: O08.89 Other complications following an ectopic and molar pregnancy (principal) | CPT/HCPCS: 84702 ==

== ENCOUNTER 2022-07-01 12:52 | Outpatient (CLI) | payer OTHER, SELFPAY | END 2022-07-01 12:53 | disposition home or self-care (01) | LOC: NFLDREF 07-02 05:43 | PROVIDERS: PCP Obstetrics & Gynecology; Referring Provider Obstetrics & Gynecology; Visit Provider Obstetrics & Gynecology | DX: Z87.59 Personal history of other complications of pregnancy, childbirth and the puerperium (principal) | CPT/HCPCS: 84702 ==

== ENCOUNTER 2022-07-03 12:56 | Outpatient (CLI) | payer OTHER, SELFPAY | END 2022-07-03 12:57 | disposition home or self-care (01) | LOC: NFLDREF 07-05 09:23 | PROVIDERS: PCP Obstetrics & Gynecology; Referring Provider Obstetrics & Gynecology; Visit Provider Obstetrics & Gynecology | DX: O09.291 Supervision of pregnancy with other poor reproductive or obstetric history, first trimester (principal); R10.31 Right lower quadrant pain | CPT/HCPCS: 84702 ==

== ENCOUNTER 2022-07-04 13:21 | Emergency (ER) | payer OTHER, SELFPAY ==
[2022-07-04 13:36] VITALS: BP 98/64; PULSE 92; RESP 16; TEMP 36.8; O2SAT 100; BMI 19.2
--- NOTE | 2022-07-04 14:12 | ED.ABDPAIN ---
HPI - Abdominal Pain General Time Seen by Provider: 14:13 Date Seen: 07/04/22 Chief Complaint: Abdominal Pain Stated Complaint: 6w Lower Abdominal Pain Time Seen by Provider: 07/04/22 13:53 Source: patient Mode of arrival: ambulatory Limitations: no limitations History of Present Illness HPI narrative: Katherine is a very pleasant 32-year-old at approximately 5 weeks with history of molar and missed spontaneous who comes to the emergency room with right lower quadrant pain. Patient noted the onset of this pain right lower quadrant gradually at approximately 1100 hours. She notes that is it has gradually increased. She is not nauseated and she has not had any spotting and cannot recall any trauma. She notes the pain is much worse when she was sitting and especially on her right over where she was hitting bumps. She notes that she is now laying down and she is feeling much better. Patient has not had any recent cough cold congestion. Related Data Home Medications Medication Instructions Recorded Confirmed No Known Home Medications 07/04/22 07/04/22 Allergies Allergy/AdvReac Type Severity Reaction Status Date / Time No Known Allergies Allergy Unknown Verified 07/04/22 13:35 Review of Systems Status of ROS Reports: 10 or more systems reviewed and unremarkable except as noted in History and below Const Denies: fever or chills Eyes Denies: change in vision or blurry vision ENMT Denies: throat pain or neck pain Cardio Denies: chest pain, palpitations or shortness of breath with exertion Resp Denies: shortness of breath or cough GI Denies: abdominal pain, nausea, vomiting or diarrhea Reports: pelvic pain; Denies: painful urination, urinary frequency or vaginal bleeding Musculo Denies: neck pain Integ/Breast Denies: rash Neuro Denies: headache PFSH PFSH Medical History Missed ab ?O02.1 - Missed (ICD-10) Thrombosed external hemorrhoids ?K64.5 - Perianal venous thrombosis (ICD-10) Surgical History H/O wisdom tooth extraction ?K08.409 - Partial loss of teeth, unspecified cause, unspecified class (ICD-10) Status post primary low transverse section (09/08/20) ?Z98.891 - History of uterine scar from previous surgery (ICD-10) Status post hemorrhoidectomy (09/08/20) ?Z98.890 - Other specified postprocedural states (ICD-10) ?Z87.19 - Personal history of other diseases of the digestive system (ICD-10) Family History Mother Factor V Leiden mutation Cardiovascular disease Pulmonary embolism Maternal Grandmother DVT (deep venous thrombosis) Paternal Grandfather DVT (deep venous thrombosis) Father Alcohol dependence Family history of testicular cancer Aunt Alcohol dependence Other FH: thromboembolic disease Social History Narrative: Relationship history: , Spouse Abran Lives with: katt Osullivan, 2 cats. Education: Bachelor's degree Employment: Paraprofessional Tobacco: No. Lifetime nonsmoker E-cigarettes: No Illicit/recreational drugs: no Alcohol: Yes. 1 serving/day Dietary restriction(s): none Concern for safety at home or work: No Exercise: Jog/walk/yoga/weights 4-5 days/week. Smoking Status: Never smoker Do you use any of these nicotine containing products: None Second hand tobacco smoke exposure: No How often do you have a drink containing alcohol: never How often do you have six or more drinks on one occasion: Never AUDIT-C Alcohol total score: 0 Non-prescribed substance use: denies use Caffeine: Yes (coffee 1 cup daily) Are you using contraception or practicing any form of control: No service: No Exam Narrative: Exam Narrative: Alert and oriented. Obviously very worried. Face symmetrical. Speech is normal. Neck is supple. Heart with regular rate and rhythm lungs are clear to auscultation. Abdomen is soft. Tenderness noted in the right lower quadrant without evidence of mass. Moving all extremities Const: Vital Signs, click to edit/add: Vital Signs - 24 hr 07/04/22 13:36 07/04/22 15:09 Temperature 98.3 F Pulse Rate [Pulse Oximeter] 92 83 Respiratory Rate 16 16 Blood Pressure [Ri ght Upper Arm] 98/64 104/63 Pulse Oximetry 100 99 Oxygen Delivery Me thod Room Air Room Air Documenting provider has reviewed patient's vital signs: yes Course Course Hospital Course: At this time patient presents with history of miscarriage, molar now with increasing discomfort right lower quadrant. Have ordered labs to include CBC, basic, hCG, urinalysis. Also will order pelvic ultrasound. Reevaluation(s) Reevaluation #1: On re-examination patient noted to have much improvement of her discomfort. She explains that it started around the belly button and migrated to right lower quadrant and earlier but now it is much improved. Reevaluation #2: Patient noted that she is feeling much better. In fact when I walk in the room she is eating with her stating that she was feeling shaky in hungry. Vital Signs Vital signs: Initial Vital Signs Temperature 98.3 F 07/04/22 13:36 Temperature Source Temporal Artery Scan 07/04/22 13:36 Pulse Rate 92 07/04/22 13:36 Pulse Rhythm Regular 07/04/22 13:36 Pulse Strength 3+ Normal 07/04/22 13:36 Respiratory Rate 16 07/04/22 13:36 Blood Pressure 98/64 07/04/22 13:36 Blood Pressure Mean 75 07/04/22 13:36 Blood Pressure Position Sitting 07/04/22 13:36 Pulse Oximetry 100 07/04/22 13:36 Oxygen Delivery Method Room Air 07/04/22 13:36 Vital Signs Temperature 98.3 F 07/04/22 13:36 Pulse Rate 92 07/04/22 13:36 Respiratory Rate 16 07/04/22 13:36 Blood Pressure 98/64 07/04/22 13:36 Pulse Oximetry 100 07/04/22 13:36 Oxygen Delivery Method Room Air 07/04/22 13:36 Temperature 98.3 F 07/04/22 13:36 Pulse Rate 83 07/04/22 15:09 Respiratory Rate 16 07/04/22 15:09 Blood Pressure 104/63 07/04/22 15:09 Pulse Oximetry 99 07/04/22 15:09 Oxygen Delivery Method Room Air 07/04/22 15:09 MDM - Abdominal Pain MDM Narrative Medical decision making narrative: 1. Abdominal pain-ultrasound reassuring with a 6 week 3 day IUP. No evidence of bleeding at this time. Patient is very relieved. A copy of the ultrasound report shared with our OB. Ob recommends follow-up with primary MD. because pain has improved so much as well as exam patient will be discharged home. I do not think that we are dealing with an appendicitis here unless pain would return. 2. IUP 3. Home at this time follow-up with primary MD. No sexual activity at this time. Medical Records Attestation: I reviewed the patient's medical records. Lab Data Attestation: I reviewed the patient's lab results. Labs: Lab Results 07/04/22 07/04/22 07/04/22 Range/Units 13:55 14:39 15:09 WBC 8.97 (4.50-11.00) K/uL RBC 4.51 (4.00-5.20) m/uL Hgb 13.7 (12.0-16.0) gm/dL Hct 40.0 (33.0-51.0) % MCV 89 (80-100) fL MCH 30 (26-34) pg MCHC 34 (32-36) gm/dL RDW Coeff of Danay 12.6 (11.5-15.5) % Plt Count 255 (140-440) K/uL Neut % (Auto) 73.5 H (42.0-72.0) % Lymph % (Auto) 18.4 L (20-44) % [place] % (Auto) 7.4 (0.0-11.0) % Eos % (Auto) 0.3 (0.0-7.0) % Baso % (Auto) 0.3 (0.0-3.0) % Neut # (Auto) 6.60 (1.7-7.0) K/uL Lymph # (Auto) 1.70 (0.90-2.90) K/uL [place] # (Auto) 0.70 (0.00-0.90) K/UL Eos # (Auto) 0.03 (0.00-0.50) K/uL Baso # (Auto) 0.03 (0.00-0.30) K/uL Sodium 138 (135-149) mmol/L Potassium 3.4 L (3.6-5.1) mmol/L Chloride 107 (96-114) mmol/L Carbon Dioxide 23 (20-32) mmol/L BUN 8 (5-24) mg/dL Creatinine 0.5 (0.5-1.5) mg/dL Estimated Creat Clear 153.15 Estimated GFR 129 ml/min Glucose 87 (60-115) mg/dL Calcium 8.8 (8.4-10.6) mg/dL HCG, Qual Positive (Negative) HCG, Quant 55802.00 mIU/mL Urine Color Yellow (Yellow) Urine Appearance Cloudy A (Clear) Urine pH 7.0 (5.0-8.5) Ur Specific [place] 1.020 (1.000-1.030) Urine Protein Negative (Negative) Urine Glucose (UA) Negative (Negative) Urine Ketones Negative (Negative) Urine Blood Negative (Negative) Urine Nitrite Negative (Negative) Urine Bilirubin Negative (Negative) Urine Urobilinogen 0.2 (0.2-1.0) Ur Leukocyte Esterase Trace A (Negative) Urine RBC 0-2 (0-2) Urine WBC 2-5 (0-5) Ur Squamous Epith Cells Few (None-Few) Urine Bacteria Moderate A (None) Imaging Data Pelvic ultrasound: Attestation: I have reviewed the pertinent imaging results. Radiologist's impression: onographic imaging demonstrates a single living intrauterine gestation. The embryo has a regular cardiac rate measuring 109 beats per minute. The embryo`s crown-rump length measurement of 0.6 cm corresponds to a gestational age of 6 weeks 3 days with a sonographic due date of 02/24/2023. There is a normal-appearing yolk sac. The placenta has not yet developed. There are two subcentimeter cystic foci in the lower uterine segment. No other significant perigestational hemorrhage. section scar in the lower uterine segment. The cervix appears closed. The right ovary measures 4.4 x 2.8 x 2.5 cm and the left ovary measures 2.0 x 1.5 x 2.4 cm. There are two thick-walled cysts in the right ovary measuring 2.4 cm and 1.8 cm in size with peripheral vascularity. These likely represent corpus luteal cysts. There is a hypoechoic avascular tubular structure in the left adnexa of uncertain etiology, possibly a dilated fallopian tube or slow flow varix. No free fluid in the cul-de-sac. IMPRESSION: 1. Single living intrauterine gestation with crown rump length 0.6 cm which corresponds to a gestational age of 6 weeks 3 days with a sonographic due date of 02/24/2023. The clinical gestational age by LMP is 6 weeks 2 days. 2. Two nonspecific subcentimeter cystic foci in the lower uterine segment which do not have the typical appearance of subchorionic hemorrhage. 3. Probable corpus luteal cysts in the right ovary. Discharge Plan Discharge Clinical Impression: Abdominal pain Qualifiers: Abdominal location: periumbilical Qualified Code(s): R10.33 - Periumbilical pain Patient Disposition: Home, Self-Care Condition: Improved Additional Instructions: Follow-up with your OB in the next week. Return for worsening symptoms. Prescriptions: No Action No Known Home Medications Follow Up/Referrals: Charla Bonner MD [Primary Care Provider] - Stand Alone Forms: [facility] Info Instructions
--- NOTE | 2022-07-04 14:19 | CRLHL7_ITS ---
For Patients: As a result of the Century Cures Act, medical imaging exams and procedure reports are released immediately into your electronic medical record. You may view this report before your referring provider. If you have questions, please contact your health care provider. INDICATION: Right lower quadrant pain. LMP 05/21/2022. COMPARISON: None. TECHNIQUE: Real-time freeman-scale imaging of the pelvis was performed. FINDINGS: Sonographic imaging demonstrates a single living intrauterine gestation. The embryo has a regular cardiac rate measuring 109 beats per minute. The embryo`s crown-rump length measurement of 0.6 cm corresponds to a gestational age of 6 weeks 3 days with a sonographic due date of 02/24/2023. There is a normal-appearing yolk sac. The placenta has not yet developed. There are two subcentimeter cystic foci in the lower uterine segment. No other significant perigestational hemorrhage. section scar in the lower uterine segment. The cervix appears closed. The right ovary measures 4.4 x 2.8 x 2.5 cm and the left ovary measures 2.0 x 1.5 x 2.4 cm. There are two thick-walled cysts in the right ovary measuring 2.4 cm and 1.8 cm in size with peripheral vascularity. These likely represent corpus luteal cysts. There is a hypoechoic avascular tubular structure in the left adnexa of uncertain etiology, possibly a dilated fallopian tube or slow flow varix. No free fluid in the cul-de-sac. IMPRESSION: 1. Single living intrauterine gestation with crown rump length 0.6 cm which corresponds to a gestational age of 6 weeks 3 days with a sonographic due date of 02/24/2023. The clinical gestational age by LMP is 6 weeks 2 days. 2. Two nonspecific subcentimeter cystic foci in the lower uterine segment which do not have the typical appearance of subchorionic hemorrhage. 3. Probable corpus luteal cysts in the right ovary. Dictated by Carolyn Sargent MD @ 07/04/2022 4:12:43 PM (Electronically Signed)
[2022-07-04 14:38] LABS: Basophils Absolute Auto 0.03 K/uL (0.00-0.30); Basophils Percent Auto 0.3 % (0.0-3.0); Eosinophils Absolute Auto 0.03 K/uL (0.00-0.50); Eosinophils Percent Auto 0.3 % (0.0-7.0); Hemoglobin* 13.7 gm/dL (12.0-16.0); Immature Granulocytes Abs Auto 0.01 K/uL (0.00-0.30); Immature Granulocytes Pct Auto 0.1 %; Lymphocytes Percent Auto 18.4 % (20-44); Mean Corpuscular HGB Conc 34 gm/dL (32-36); Mean Corpuscular Hemoglobin 30 pg (26-34); Mean Corpuscular Volume 89 fL (80-100); Monocytes Percent Auto 7.4 % (0.0-11.0); Neutrophils Percent Auto 73.5 % (42.0-72.0); Platelet Count* 255 K/uL (140-440); RDW Coefficient of Variation % 12.6 % (11.5-15.5); Red Blood Count 4.51 m/uL (4.00-5.20); White Blood Count* 8.97 K/uL (4.50-11.00)
[2022-07-04 14:44] LABS: Appearance Urine Cloudy (Clear); Bilirubin Urine Negative (Negative); Blood Urine Negative (Negative); Color Urine Yellow (Yellow); Glucose Urine Negative (Negative); Ketones Urine Negative (Negative); Leukocyte Esterase Urine Trace (Negative); Nitrite Urine Negative (Negative); Protein Urine Negative (Negative); Urobilinogen Urine 0.2 (0.2-1.0)
[2022-07-04 14:44] LABS: Slide Review Reflex No
[2022-07-04 15:02] LABS: Chloride* 107 mmol/L (96-114); HCG Qualitative Serum* Positive (Negative); Potassium* 3.4 mmol/L (3.6-5.1); Sodium* 138 mmol/L (135-149)
[2022-07-04 15:05] LABS: Blood Urea Nitrogen* 8 mg/dL (5-24); Carbon Dioxide* 23 mmol/L (20-32); Creatinine* 0.5 mg/dL (0.5-1.5); Est. Creatinine Clearance* 153.15; Estimated Glomerular Filt Rate 129 ml/min
[2022-07-04 15:06] LABS: Calcium* 8.8 mg/dL (8.4-10.6); Glucose* 87 mg/dL (60-115)
[2022-07-04 15:09] VITALS: BP 104/63; PULSE 83; RESP 16; O2SAT 99
[2022-07-04 16:20] LABS: Bacteria Urine Moderate; RBC Urine 0-2 (0-2); Squamous Epithelial Cell Urine Few (None-Few)
== END 2022-07-04 17:22 | disposition home or self-care (01) ==
PROVIDERS: Emergency Provider Family Medicine; PCP Obstetrics & Gynecology
DX: R10.9 Unspecified abdominal pain (principal); Z33.1 Pregnant state, incidental
CPT/HCPCS: 36415; 76817; 80048; 81001; 84702; 84703; 85025; 87086; 99284

== ENCOUNTER 2022-09-28 10:48 | Emergency (ER) | payer OTHER, SELFPAY ==
[2022-09-28 11:00] VITALS: BP 106/61; PULSE 90; RESP 18; TEMP 36.2; O2SAT 100
--- NOTE | 2022-09-28 11:16 | CRLHL7_ITS ---
For Patients: As a result of the Century Cures Act, medical imaging exams and procedure reports are released immediately into your electronic medical record. You may view this report before your referring provider. If you have questions, please contact your health care provider. INDICATION: SPOTTING IN HISTORY: Spotting in . COMPARISON: 07/23/2022. 07/04/2022. TECHNIQUE: obstetric ultrasound. 2D and color Doppler interrogation was obtained. FINDINGS: The cervix appears closed. There is no prolapse of parts or funneling. It measures 3.9 cm in length. Anterior placenta. No retroplacental fluid collection or evidence for a placental abruption. The largest pocket of amniotic fluid is 5.2 cm. Cardiac activity by M-mode ultrasound is 145 beats per minute. Small perigestational hematoma to the left of midline, which measures 2.7 x 1.7 x 0.6 cm. There is an additional perigestational hematoma in the lower uterine segment measuring 5.9 x 0.7 x 1.0 cm. There is no adnexal mass. IMPRESSION: 1. Small perigestational hematomas. 2. Single living intrauterine fetus. biometry was not obtained. 3. No acute findings. Dictated by Eric Vick MD @ 09/28/2022 12:06:05 PM Dictated by: Eric Vick MD @ 09/28/2022 12:06:14 (Electronically Signed)
--- NOTE | 2022-09-28 11:18 | ED.GENADULT ---
HPI - General Adult General Chief complaint: Vaginal Bleeding Stated complaint: 19 weeks and spotting +possible sinus infection Time Seen by Provider: 09/28/22 10:51 History of Present Illness HPI narrative: This 32-year-old female is 19 weeks and comes in stating that she had some small amount of spotting vaginally this morning. She does not report any cramping. She states this has been going well. She does have a history of Leiden factor 5 mutation and is taking a baby aspirin daily. She does have a 2-year-old toddler at home and then had a miscarriage with a subsequent D&C at which time she had multiple clots that indicated a workup finding the Leiden factor 5 mutation. The patient also reports 2-3 days of maxillary sinus pressure and discomfort with rhinorrhea. She has not had any cough or fevers. Related Data Home Medications Medication Instructions Recorded Confirmed ascorbate calcium (vitamin C) 500 600 mg PO QDAY 07/23/22 08/13/22 mg tablet aspirin 81 mg chewable tablet 81 mg PO QDAY 07/23/22 09/28/22 docusate sodium 100 mg capsule 100 mg PO QDAY 07/23/22 09/28/22 (Stool Softener) prenat.vits,lesvia,[id number] 1 tab PO QDAY 07/23/22 09/28/22 calcium carbonate 200 mg calcium 200 mg PO BID 08/13/22 09/28/22 (500 mg) chewable tablet (Tums) polyethylene glycol 3350 17 17 g PO DAILY 09/28/22 09/28/22 gram/dose oral powder (Miralax) Previous Rx's Medication Instructions Recorded amoxicillin 500 mg capsule 500 mg PO TID 7 days #21 caps 09/28/22 Allergies Allergy/AdvReac Type Severity Reaction Status Date / Time No Known Allergies Allergy Unknown Verified 09/28/22 10:58 Review of Systems Status of ROS: Reports: 10 or more systems reviewed and unremarkable except as noted in History and below Narrative: Constitutional: No fevers, no weight gain or loss. Eyes: No discharge. No vision changes. HENT: No sore throat, no ear pain. Nasal congestion and maxillary sinus pressure bilaterally. Cardiovascular: No chest pain, no palpitations. Respiratory: No shortness of breath, no wheezes, no cough. Gastrointestinal: No abdominal pain, no vomiting, no diarrhea. Genitourinary: No dysuria, no hematuria. Vaginal spotting at 19 weeks gestation. Musculoskeletal: Normal range of motion. Skin: No rashes, no pruritis. Neurological: No dizziness, weakness, sensory change, speech change. Endo/Heme/Allergies: No bruising or bleeding. No polydipsia. Pysch: no suicidality, no anxiety, no insomnia. All other systems reviewed and are negative. [facility] Medical History (Updated 09/28/22 @ 13:22 by Agus Ferrera MD) Endometritis ?N71.9 - Inflammatory disease of uterus, unspecified (ICD-10) Partial molar ?O08.89 - Other complications following an ectopic and molar (ICD-10) Missed ab ?O02.1 - Missed (ICD-10) Thrombosed external hemorrhoids ?K64.5 - Perianal venous thrombosis (ICD-10) Surgical History (Updated 08/13/22 @ 18:43 by Charla Bonner MD) History of D&C ?Z98.890 - Other specified postprocedural states (ICD-10) H/O wisdom tooth extraction ?K08.409 - Partial loss of teeth, unspecified cause, unspecified class (ICD-10) Status post primary low transverse section (09/08/20) ?Z98.891 - History of uterine scar from previous surgery (ICD-10) Status post hemorrhoidectomy (09/08/20) ?Z98.890 - Other specified postprocedural states (ICD-10) ?Z87.19 - Personal history of other diseases of the digestive system (ICD-10) Family History Mother Factor V Leiden mutation Cardiovascular disease Pulmonary embolism Maternal Grandmother DVT (deep venous thrombosis) Paternal Grandfather DVT (deep venous thrombosis) Father Alcohol dependence Family history of testicular cancer Aunt Alcohol dependence Other FH: thromboembolic disease Social History Narrative: Relationship history: , Spouse Abran Lives with: Abran, son Ronaldo, 2 cats. Education: Bachelor's degree Employment: Paraprofessional Tobacco: No. Lifetime nonsmoker E-cigarettes: No Illicit/recreational drugs: no Alcohol: Yes. 1 serving/day Dietary restriction(s): none Concern for safety at home or work: No Exercise: Jog/walk/yoga/weights 4-5 days/week. Smoking Status: Never smoker Do you use any of these nicotine containing products: None Second hand tobacco smoke exposure: No How often do you have a drink containing alcohol: never How often do you have six or more drinks on one occasion: Never AUDIT-C Alcohol total score: 0 Non-prescribed substance use: denies use Caffeine: Yes (coffee 1 cup daily) Little interest or pleasure in doing things: not at all Feeling down, depressed, or hopeless: not at all Are you using contraception or practicing any form of control: No service: No Exam Narrative: Exam Narrative: Constitutional: Well-developed, well-nourished, no acute distress. HEENT: Normocephalic, atraumatic. Nasal congestion. Maxillary sinus pressure and mild tenderness. Neck: Normal range of motion. Nontender. Supple. Heart: Regular. No murmurs. Normal rate. Intact distal pulses. Lungs: Clear to auscultation. No chest discomfort. No wheezes, rhonchi, or rales. Abdomen: Normal bowel sounds. Nontender. No rebound tenderness. Gravid at 19 weeks. Genitalia: Deferred. Back: No midline tenderness. Normal range of motion. Extremities: Normal range of motion. No injury. Skin: Intact. No rash. Warm. No erythema or pallor. Neurologic: No altered sensation. No weakness. Alert and oriented. Psychiatric: No suicidality. No anxiety or depression. No insomnia. Nursing notes and vitals signs are reviewed. Const: Vital Signs, click to edit/add: Vital Signs - 24 hr 09/28/22 11:00 Temperature 97.1 F L Pulse Rate [Pulse Oximeter] 90 Respiratory Rate 18 Blood Pressure [Ri ght Upper Arm] 106/61 Pulse Oximetry 100 Oxygen Delivery Me thod Room Air Course Vital Signs Vital signs: Initial Vital Signs Temperature 97.1 F L 09/28/22 11:00 Temperature Source Temporal Artery Scan 09/28/22 11:00 Pulse Rate 90 09/28/22 11:00 Respiratory Rate 18 09/28/22 11:00 Blood Pressure 106/61 09/28/22 11:00 Blood Pressure Mean 76 09/28/22 11:00 Blood Pressure Position Sitting 09/28/22 11:00 Pulse Oximetry 100 09/28/22 11:00 Oxygen Delivery Method Room Air 09/28/22 11:00 Vital Signs Temperature 97.1 F L 09/28/22 11:00 Pulse Rate 90 09/28/22 11:00 Respiratory Rate 18 09/28/22 11:00 Blood Pressure 106/61 09/28/22 11:00 Pulse Oximetry 100 09/28/22 11:00 Oxygen Delivery Method Room Air 09/28/22 11:00 Temperature 97.1 F L 09/28/22 11:00 Pulse Rate 90 09/28/22 11:00 Respiratory Rate 18 09/28/22 11:00 Blood Pressure 106/61 09/28/22 11:00 Pulse Oximetry 100 09/28/22 11:00 Oxygen Delivery Method Room Air 09/28/22 11:00 Medical Decision Making MDM Narrative Medical decision making narrative: This patient comes in with small amount of spotting that occurred today. She is on a baby aspirin to manage Leiden factor 5 mutation. An ultrasound of abdomen is acquired and does show normal development and activity. There are a couple small perigestational collections of fluid. This is likely due to her aspirin therapy. These results are reassuring to the patient. I advised her to follow-up with her OBGYN physician for ongoing management. As for her sinus symptoms I explained that this is likely allergic or viral in nature and not so likely a bacterial infection. Without CT imaging or fluid that can be sent to culture it is more difficult to distinguish between these. I stated that I typically do not treat sinus symptoms with antibiotic treatment as this is what Ear Nose and Throat physicians are recommending unless there is evidence with various studies. In her case CT imaging is not a good plan and there are not tools for obtaining and culture from maxillary sinus here. I did prescribe amoxicillin and advised her to follow-up with her primary doctor or OB physician in this regard also. She can take the medicine if desired but may get better without introducing another medication into her system. Imaging Data US - abdomen: Radiologist's impression: 1. Small perigestational hematomas. 2. Single living intrauterine fetus. biometry was not obtained. 3. No acute findings. Discharge Plan Discharge Clinical Impression: Sinusitis, Heterozygous factor V Leiden mutation Patient Disposition: Home, Self-Care Condition: Stable Additional Instructions: Follow-up with primary physician and or OBGYN physician for ongoing management. Return if worsening. Prescriptions: New amoxicillin 500 mg capsule 500 mg PO TID 7 Days Qty: 21 0RF No Action prenat.vits,lesvia,[id number] Tablet 1 tab PO QDAY ascorbate calcium (vitamin C) 500 mg tablet 600 mg PO QDAY docusate sodium [Stool Softener] 100 mg capsule 100 mg PO QDAY aspirin 81 mg tablet,chewable 81 mg PO QDAY calcium carbonate [Tums] 200 mg calcium (500 mg) tablet,chewable 200 mg PO BID polyethylene glycol 3350 [Miralax] 17 gram/dose powder 17 g PO DAILY Follow Up/Referrals: Provider,Not a Local [Referring] - Stand Alone Forms: [employer] Info Instructions
== END 2022-09-28 13:27 | disposition home or self-care (01) ==
PROVIDERS: Emergency Provider Emergency Medicine Emergency Medical Services; PCP Obstetrics & Gynecology
DX: D68.51 Activated protein C resistance (principal); J32.9 Chronic sinusitis, unspecified
CPT/HCPCS: 76815; 99284

== ENCOUNTER 2022-10-04 07:57 | Outpatient (CLI) | payer OTHER, SELFPAY ==
--- NOTE | 2022-10-04 08:15 | CRLHL7_ITS ---
For Patients: As a result of the Century Cures Act, medical imaging exams and procedure reports are released immediately into your electronic medical record. You may view this report before your referring provider. If you have questions, please contact your health care provider. INDICATION: Evaluate anatomy. COMPARISON: 09/28/2022, 07/23/2022, 07/04/2022 TECHNIQUE: Real time freeman scale imaging of the fetus was performed as well as color Doppler analysis of the umbilical vessels. FINDINGS: Sonographic imaging demonstrates a single living intrauterine gestation. Fetus demonstrates a regular cardiac rate of 147 beats per minute. Fetus has a vertex position. The placenta lies anteriorly without evidence of placenta previa. The placental edge is located 8.6 cm from the internal cervical os. Amniotic fluid volume appears normal. Single deepest vertical pocket: 3.8 cm. The cervix is closed and measures 4.3 cm in length. The composite ultrasound gestational age is calculated at 20 weeks 2 days with an estimated sonographic due date of 02/19/2023. The estimated weight is 345 grams which lies at the 90th %. The following biometric measurements were obtained: Biparietal diameter: 4.6 cm/20 weeks 0 days 74th% Head circumference: 17.5 cm/20 weeks 0 days 71st% Abdominal circumference: 14.7 cm/20 weeks 0 days 63rd% Femur length: 3.4 cm/20 weeks 6 days 87th% The HC/AC ratio measures: 1.19 range (1.07-1.25) On anatomic survey, there is a normal appearance of the cerebral ventricles, cavum septi pellucidi, cisterna magna and cerebellum. The nose, lips, and facial profile appear normal. The cervical, thoracic and lumbar spine are well visualized and appear normal. There is a normal four-chamber heart view and the left and right ventricular outflow tracts appear normal. The diaphragm and stomach appear normal. The kidneys and bladder also appear normal. There is a normal three-vessel cord and cord insertion site. The four extremities appear normal. IMPRESSION: Concordance of clinical and sonographic dating. No intrinsic abnormalities noted on anatomic survey. Right inferior subchorionic hemorrhage again noted measuring 4.2 x 1.1 x 1.7 cm. Left superior subchorionic hemorrhage also again noted measuring 3.4 x 2.2 x 1.2 cm. Dictated by Edd Soler MD @ 10/04/2022 11:27:42 AM (Electronically Signed)
== END 2022-10-04 07:58 | disposition home or self-care (01) ==
LOC: US 07:58
PROVIDERS: PCP Obstetrics & Gynecology; Visit Provider Obstetrics & Gynecology
DX: Z34.92 Encounter for supervision of normal pregnancy, unspecified, second trimester (principal); Z3A.19 19 weeks gestation of pregnancy
CPT/HCPCS: 76805

== ENCOUNTER 2022-12-02 08:45 | Outpatient (CLI) | payer OTHER, SELFPAY | END 2022-12-02 08:46 | disposition home or self-care (01) | LOC: NFLDREF 12-04 14:03 | PROVIDERS: Visit Provider Obstetrics & Gynecology | DX: Z34.90 Encounter for supervision of normal pregnancy, unspecified, unspecified trimester (principal) | CPT/HCPCS: 86592 ==

== ENCOUNTER 2022-12-03 11:31 | Outpatient (REF) | payer OTHER, SELFPAY | END 2022-12-03 11:32 | disposition home or self-care (01) | LOC: NFLDREF 11:31 | PROVIDERS: Visit Provider Obstetrics & Gynecology | DX: Z34.90 Encounter for supervision of normal pregnancy, unspecified, unspecified trimester (principal) | CPT/HCPCS: 86592 ==

== ENCOUNTER 2023-01-27 12:04 | Outpatient (CLI) | payer OTHER, SELFPAY ==
--- NOTE | 2023-01-27 12:15 | CRLHL7_ITS ---
For Patients: As a result of the Century Cures Act, medical imaging exams and procedure reports are released immediately into your electronic medical record. You may view this report before your referring provider. If you have questions, please contact your health care provider. INDICATION: Follow-up growth TECHNIQUE: Real time freeman scale imaging of the fetus was performed. COMPARISON: 10/04/2022 FINDINGS: Sonographic imaging demonstrates a single living intrauterine gestation. Fetus demonstrates a regular cardiac rate of 126 beats per minute. Fetus has a vertex position. The placenta lies anteriorly. Amniotic fluid volume appears normal and there is a single deepest pocket of 6.6 cm. The estimated weight is 2922gm which lies at the 65th %. On the prior OB ultrasound dated 10/04/2022 the estimated weight was at the 90th percentile. BPD 54th percentile. HC 81st percentile. AC 63rd percentile. FL 66th percentile. The fetus was active. Absent breathing movements. There was normal flexion and extension of the trunk and extremities. IMPRESSION: Biophysical profile 08/08. Sonographic gestational age 36 weeks 5 days and sonographic due date 02/25/2023. Sonographic age 6 days ahead of the clinical age. Estimated weight 65th percentile. Abdominal circumference 63rd percentile. Dictated by Edd Soler MD @ 01/29/2023 11:56:31 AM (Electronically Signed)
== END 2023-01-27 12:05 | disposition home or self-care (01) ==
LOC: US 12:05
PROVIDERS: Visit Provider Obstetrics & Gynecology
DX: Z34.93 Encounter for supervision of normal pregnancy, unspecified, third trimester (principal); Z3A.36 36 weeks gestation of pregnancy
CPT/HCPCS: 76816; 76819; 87081; 87653

== ENCOUNTER 2023-02-03 13:00 | Outpatient (RCR) | payer OTHER, SELFPAY | END 2023-03-26 10:44 | disposition home or self-care (01) | PROVIDERS: Visit Provider Obstetrics & Gynecology | DX: O26.892 Other specified pregnancy related conditions, second trimester (principal); Z51.89 Encounter for other specified aftercare | CPT/HCPCS: 97110; 97140; 97162; 97530; 97535 ==

== ENCOUNTER 2023-02-11 11:25 | Outpatient (CLI) | payer OTHER, SELFPAY ==
--- NOTE | 2023-02-11 11:30 | CRLHL7_ITS ---
For Patients: As a result of the Century Cures Act, medical imaging exams and procedure reports are released immediately into your electronic medical record. You may view this report before your referring provider. If you have questions, please contact your health care provider. INDICATION: Uterine size-date discrepancy, third trimester, ANGIE check COMPARISON: 01/27/2023 TECHNIQUE: Real time freeman scale imaging of the fetus was performed. FINDINGS: Sonographic imaging demonstrates a single living intrauterine gestation. Fetus demonstrates a regular cardiac rate of 135 beats per minute. Fetus has a vertex position. The placenta lies left anterior. Amniotic fluid volume appears normal and there is a single deepest vertical pocket: 5.2 cm. ANGIE 10.7 cm. IMPRESSION: ANGIE 10.7 cm. Dictated by Edd Soler MD @ 02/11/2023 12:48:06 PM (Electronically Signed)
== END 2023-02-11 11:26 | disposition home or self-care (01) ==
LOC: US 11:25
PROVIDERS: Visit Provider Obstetrics & Gynecology
DX: O26.843 Uterine size-date discrepancy, third trimester (principal)
CPT/HCPCS: 76815

== ENCOUNTER 2023-02-25 05:03 | Inpatient (IN) | payer OTHER, SELFPAY ==
[2023-02-25] VITALS (26 sets, daily range): BP systolic 87–118; BP diastolic 55–76; PULSE 50–79; RESP 16; TEMP 35.7–37; O2SAT 94–98; BMI 24.7
[2023-02-25] MEDS: LACTATED RINGERS 1000 ML 1,000 ML 200 ML IV ×2 (05:42→08:08)
[2023-02-25 06:36] LABS: Basophils Absolute Auto 0.03 K/uL (0.00-0.30); Basophils Percent Auto 0.4 % (0.0-3.0); Eosinophils Absolute Auto 0.07 K/uL (0.00-0.50); Eosinophils Percent Auto 0.9 % (0.0-7.0); Hematocrit 35.7 % (33.0-51.0); Immature Granulocytes Abs Auto 0.05 K/uL (0.00-0.30); Immature Granulocytes Pct Auto 0.6 %; Lymphocytes Percent Auto 18.2 % (20-44); Mean Corpuscular HGB Conc 34 gm/dL (32-36); Mean Corpuscular Hemoglobin 31 pg (26-34); Mean Corpuscular Volume 92 fL (80-100); Monocytes Percent Auto 7.4 % (0.0-11.0); Neutrophils Percent Auto 72.5 % (42.0-72.0); Platelet Count* 157 K/uL (140-440); RDW Coefficient of Variation % 13.6 % (11.5-15.5); Red Blood Count 3.87 m/uL (4.00-5.20); White Blood Count* 8.23 K/uL (4.50-11.00)
[2023-02-25 06:42] LABS: Slide Review Reflex No
--- NOTE | 2023-02-25 07:20 | W.PM.LDBA ---
Subjective History of Present Illness Date Seen: 02/25/23 Narrative: Patient is being admitted to Labor and Delivery for repeat section. She is a 33 year old at 40 0/7 weeks gestation. Her full history and physical was dictated by Dr. Bonner on 02/11/23. Please see this for details. Specific Issues/Plans [id number] Spouse: Abran. Baby: Boy Az H&P Dr. Bonner 02/11/23 1. Status post for large thrombosed hemorrhoid; no labor. Considering Consent form given for her review 08/13/22. Signed on 12/30/2022 Chance of success: 84.9% based on MFMU calculator Growth US at 36 weeks: Cephalic, SDP 6.8 cm, EFW 65%, AC 63%. scheduled for 02/25 = 40 0/7 2. Factor 5 Leiden heterozygous. No personal history of VTE Declines perinatology consult Aspirin 81 mg daily, stopped 38 weeks Anticoagulation : Prophylactic Lovenox X 6 weeks in setting of . Observation is permissible with vaginal . 3. Constipation MiraLax and stool softeners 4. loss in December (partial molar) -traumatic for patient. She had initial dilation and curettage and then had repeat procedure in the setting of endometritis with pathology showing only blood clot. She is seeing a therapist and it has been helpful. - Beta HCG at 6 week : [] - After delivery, sending placenta to pathology 5. Rubella nonimmune MMR 6. Bleeding at 19 weeks' gestation. Subchorionic hemorrhages on 20 week anatomy scan: 4.2 and 3.4 cm in greatest dimension. 7. Failed 1 hr GTT initially, but ate after Glucola and before blood draw. Repeat normal. 8. Bacterial vaginosis X 2 this . 9. Pubic symphyseal pain, well managed with PT Patient declined gonorrhea and chlamydia and declined Pap until FLU: 12/16 TDAP: 12/16 RSV: 12/30 OB - Problem Based A/P Additional Plan (1) : Status: Acute (2) History of section complicating : Status: Acute (3) Heterozygous factor V Leiden mutation: Status: Acute Plan 1. Repeat section. 2. Will send placenta to pathology due to history of partial mole. 3. Recommend prophylactic Lovenox for 6 weeks pp. OB Result Labs Labs: Hgb:12.0 [id number] OB Exam Physical Exam Vital signs: Temp Pulse BP 98.6 F 79 118/62 02/25/23 06:03 02/25/23 05:32 02/25/23 05:32 Detailed Labor and Delivery Exam Patient Gravid: Yes Contraction Frequency: Sporadic Fetus (Single) Heart Rate Baseline: 120 Monitor Accelerations: Present Monitor Decelerations: None Penitentiary Variability: Moderate (6-25)
--- NOTE | 2023-02-25 07:56 | P.OBPRC_ITS ---
OB Delivery Proc Additional Procedures Tubal Ligation at the time of : No Other: No Procedure Date of procedure: 02/25/23 Pre-op diagnosis: Previous section x1 Post-op diagnosis: same Procedure Done: Global Will [facility] bill your pro fee for this procedure?: Yes Blood Loss Measurement Type: QBL (505mL) Bakri Used: No IV fluids (mL): 1,900 Urine Output (mL): 200 Urine Output Comment: clear urine at end of procedure Surgeon: Radu Franklin MD Ordnance Truck Installation Mechanic: None Anesthesia Type: Spinal Findings: FINDINGS: Live-born male , vertex presentation, Apgars 9 and 9 at 1 and 5 minutes respectively. weight 8 lb 15 oz. Previous scar incision with keloid. Procedure Name: Repeat Low Transverse Section, removal of keloid from previous surgical scar. Procedure Description: PROCEDURE: After obtaining informed consent, the patient was taken to the operating room where spinal anesthesia was obtained and found to be adequate. She was prepared and draped in the normal sterile fashion in the dorsal supine position with a leftward tilt. A Pfannenstiel skin incision was made with a scalpel along the lower line of the patient's previous Pfannenstiel scar. This incision was carried down to the underlying layer of fascia with the scalpel and Bovie. The fascia was incised in the midline and the incision extended laterally. The rectus muscles were then in the midline. Omentum was identified to be attached to the anterior abdominal wall, this was easily moved aside. The Jordan O retractor was then placed into the incision. The lower uterine segment was then incised in a transverse fashion with the scalpel. Upon entry into the uterus, clear amniotic fluid was noted. The uterine incision was extended cephalo caudally with blunt finger fractionation. The infant's head was delivered atraumatically, followed by the remainder of the 's body. The nose and mouth were suctioned with the bulb suction. The cord was doubly clamped and cut, after 30 seconds of delayed cord clamping and the infant was handed off the field for evaluation. The placenta was delivered spontaneously with umbilical cord traction and fundal massage. The uterus was cleared of all clots and debris. The uterine incision was reapproximated in a running locking fashion with a 0 Vicryl suture. A 2nd layer of the same suture was used to imb ricate in horizontal fashion. The gutters were inspected and cleared of blood clots. All instruments and retractors were removed. Previously described omental adhesion to the anterior abdominal wall was released utilizing cautery and Vicryl 3-0 suture ligation. Hemostasis secured. The anterior peritoneum was reapproximated in a running fashion with a 3-0 Vicryl suture. The subfascial tissues were carefully inspected and hemostasis assured. The fascia was reapproximated in a running fashion with a looped 0 Vicryl suture. The subcutaneous tissues were copiously irrigated. Hemostasis was assured. The upper incision skin was then grasped with 3 Allis clamps and with blade the keloid skin was removed. The subcutaneous fat layer was reapproximated with continuous sutures of 3-0 Vicryl. The skin was closed in a subcuticular fashion with 4-0 Monocryl. LiquiBand and dressing were applied. The patient tolerated the procedure well. Sponge, lap, needle, and instrument counts were reported as correct x2. The patient was taken to the recovery room, awake, and in stable condition. She did receive 2 grams of IV Ancef preoperatively. Complications: None Pathology: specimen obtained, sent to pathology (Placenta due to history of molar ) Surgery Debrief Performed: Yes Surgery Debrief Comment: Procedure performed, QBL, placenta specimens and questions clarified. Condition: stable Disposition: floor
[2023-02-25] MEDS: CEFAZOLIN 2 GM INJ IVP (08:04)
--- NOTE | 2023-02-25 09:16 | W.ANESCHARGE ---
Anesthesia Charges Start Date/Time Anesthesia Start Date: 02/25/23 Anesthesia Start Time: 07:36 Stop Date/Time Anesthesia Stop Date: 02/25/23 Anesthesia Stop Time: 09:13
--- NOTE | 2023-02-25 09:18 | W.PM.NB ---
Nerve Block Nerve Block Time Seen by Provider: 09:04 Date Seen: 02/25/23 Type of block requested by surgeon for post-operative analgesia: TAP Side: bilateral Time out performed: Yes Verification of patient name: Yes Verification of date of : Yes Site marking: not applicable Name of person performing procedure: Hugh Continuous monitoring Was continuous monitoring of O2 sat, B/P, monitoring manager, recorded every 15 minutes?: Yes Procedure Checklist: sterile prep and needles Ultrasound guided. Images saved: Yes Medications given in 5ml increments after negative aspiration: Marcaine %: 0.25 mL: 30 Needle gauge: 20 and Exparel mL: 10 Needle gauge: 20 Patient tolerated procedure well: Yes
[2023-02-25] MEDS: ACETAMINOPHEN 500 MG TABLET 1000 MG PO ×2 (11:14→17:33)
--- NOTE | 2023-02-25 11:37 | PM.ANPOST ---
Post Anesthesia Note Post Anesthesia Note Patient seen: Inpatient Respiratory Status: adequate Cardiovascular Status: adequate Mental Status: baseline Pain: adequate Temp: baseline Anesthetic awareness: N/A Complications: none Follow care: none
[2023-02-25] MEDS: KETOROLAC 30 MG/ML inj IVP ×2 (15:10→20:31)
[2023-02-25] MEDS: ENOXAPARIN 40 MG/0.4 ML INJ SUBCUT (20:32)
[2023-02-25] MEDS: MEASLES,MUMPS,RUBELLA VACC/PF 1 DOSE INJ 1 EACH SUBCUT (21:33)
[2023-02-25] MEDS: DOCUSATE SODIUM 100 MG CAPSULE PO (21:33)
[2023-02-26] VITALS (13 sets, daily range): BP systolic 95–102; BP diastolic 56–63; PULSE 69–78; RESP 16–18; TEMP 36.3–36.8; O2SAT 95–96
[2023-02-26] MEDS: ACETAMINOPHEN 500 MG TABLET 1000 MG PO ×4 (00:15→19:54)
[2023-02-26] MEDS: KETOROLAC 30 MG/ML inj IVP ×3 (03:47→15:15)
[2023-02-26 06:14] LABS: Hemoglobin* 11.4 gm/dL (12.0-16.0)
--- NOTE | 2023-02-26 07:44 | PM.OBPNVD1 ---
OB - PN:Subj Subjective Time Seen by Provider: 07:44 Date Seen: 02/26/23 Interval history: Katherine is a 33 y.o. who was admitted to L & D for repeat .? She had an uncomplicated repeat .? ? ? Narrative: The patient feels well.? The pain is well controlled with current medications.? She has no new complaints.? She is breast feeding and reports things are going well.? the patient has done well.? Vitals have been stable.? She has remained afebrile.? Has a good appetite, is tolerating a general diet.? She is able to void, but does state it takes about 5 minutes of sitting before she is able to do so. Is able to feel when her bladder is full, but almost feels as though she is relearning how to use that muscle and relax enough to void.? She is passing gas and has not had a bowel movement.? She is ambulating and denies any dizziness or numbness in her extremities.? Has Small amount of rubra lochia.? OB - PN: Obj Exam Physical Exam: Vital signs: Temp Pulse Resp BP Pulse Ox O2 Del Method 97.8 F 69 16 96/58 L 95 Room Air 02/26/23 03:40 02/26/23 03:40 02/26/23 06:21 02/26/23 03:40 02/26/23 03:40 02/26/23 03:40 Narrative: VSS.? Afebrile? GENERAL APPEARANCE:? normal affect, alert, no distress? MOOD:? appropriate? HEENT: normocephalic, neck supple, full ROM? CHEST:? Symmetrical chest wall movement.? Normal respiratory effort.? Clear to auscultation? HEART:? regular rate and rhythm? ABDOMEN:? soft, non-tender. Uterine fundus is firm, 1 above Umbilicus, Midline and is appropriate for the stage of recovery.? Bowel sounds present.? EXTREMITIES:? normal and no edema? SKIN: warm, dry.? Dressing on, clean/dry/intact.? No signs of infection noted.? Urinary Catheter Management: Urethral: Cath placed during this visit: yes, but has since been removed by the nurse Reason for continuing: decision to DC catheter Insertion date: 02/25/23 Insertion time: 07:59 Removal date: 02/25/23 Removal time: 15:00 OB - PN: Obj Data Labs Labs: Laboratory Results - last 24 hr 02/25/23 02/26/23 06:05 05:58 Hgb 11.4 L Blood Type A Positive Antibody Screen NEGATIVE OB - PN: A/P Delivery Assessment and Plan (1) examination following delivery: Status: Acute (2) Lactating mother: Status: Acute (3) History of section complicating : Status: Acute (4) Heterozygous factor V Leiden mutation: Status: Acute Plan Comments: Assessment/Plan? G 3 P 2 status post uncomplicated repeat .? ?? 1.? Continue route PP cares? 2.? .? May see if desired? 3.? Anticipate discharge home tomorrow or the following day per pt preference? 4. Heterozygous factor V leiden. Continue Lovenox x 6 weeks 5. Difficulty initiating voiding. Comfort measures reviewed to help. Reviewed likely due to anesthesia. Will continue to monitor. Is aware if she is unable to void, or feels as though she is not emptying, to notify provider.
[2023-02-26] MEDS: DOCUSATE SODIUM 100 MG CAPSULE PO (08:29)
[2023-02-26] MEDS: OXYCODONE 5 MG TABLET PO (18:13)
[2023-02-26] MEDS: ENOXAPARIN 40 MG/0.4 ML INJ SUBCUT (19:59)
[2023-02-26] MEDS: IBUPROFEN 600 MG TABLET PO (22:02)
[2023-02-27] MEDS: LIDOCAINE 5% PATCH 1 PATCH TRANSDERMA (01:25)
[2023-02-27] MEDS: ACETAMINOPHEN 500 MG TABLET 1000 MG PO (01:30)
[2023-02-27] MEDS: OXYCODONE 5 MG TABLET PO (01:30)
[2023-02-27] MEDS: IBUPROFEN 600 MG TABLET PO (06:15)
--- NOTE | 2023-02-27 07:42 | PM.OBDSVD1 ---
DS: Providers Provider Date Seen: 02/27/23 Date of admission: 02/25/23 05:03 Primary care physician: Not a Local Provider Admitting Clinician: Tanvi Franklin MD Attending Physician on discharge: Sylvia Quiroz CNM DS: Diagnosis Discharge Diagnosis (1) examination following delivery: Status: Acute (2) Lactating mother: Status: Acute Exam Const: Vital Signs, click to edit/add: Vital Signs - 24 hr 02/26/23 08:11 02/26/23 15:37 02/26/23 23:37 Temperature 98 F 97.6 F 98.3 F Pulse Rate [Left A pical] 77 75 Pulse Rate [Pulse Oximeter] 77 78 Respiratory Rate 16 18 16 Blood Pressure [Ri ght Arm] 98/63 100/63 102/56 L Pulse Oximetry 96 96 Oxygen Delivery Me thod Room Air Room Air OB - DS: Summary Hospital Course Hospital Course: The patient is a 33 year old G [] P [] at [] weeks gestation that was admitted to the Center on 02/25/23 for []. She had an [uncomplicated/complicated] [vaginal/] delivery. She delivered a viable [male/female] infant. She is [breast/bottle] feeding. the patient has done well. Peripartum Data Procedures: Procedures Operation Date: 02/25/23 07:15 Actual Procedure Side Surgeon p Repeat Low Transverse Section Tanvi Franklin MD [place] Infant Gender: Male Time Spent with Patient Time attestation: Total time spent providing and/or coordinating discharge services: Discharge Plan Discharge Disposition: Home, Self-Care Date of Admission: 02/25/23 05:03 Attending Provider on Discharge: Sylvia Quiroz Primary Care Provider: Provider,Not a Local Condition: Stable Anticipated Discharge Date/Time: 02/27/23 12:00 Discharge Medications: New enoxaparin 40 mg/0.4 mL Syringe 40 mg subcut Q24H Qty: 42 0RF acetaminophen 500 mg Tablet 1,000 mg PO Q6H PRN (Reason: pain/fever) Qty: 0 0RF docusate sodium 100 mg Capsule 100 mg PO DAILY Qty: 90 0RF ibuprofen 600 mg Tablet 600 mg PO Q6H PRN (Reason: Pain) Qty: 60 0RF oxycodone 5 mg Tablet 5 - 10 mg PO Q4H PRN (Reason: Pain) Qty: 15 0RF Continued famotidine [Acid Lawn Specialist (famotidine)] 10 mg tablet 10 mg PO QDAY prenat.vits,lesvia,qso-tvhj-oiphv Tablet 1 tab PO QDAY ascorbate calcium (vitamin C) 500 mg tablet 600 mg PO QDAY docusate sodium [Stool Softener] 100 mg capsule 100 mg PO QDAY calcium carbonate [Tums] 200 mg calcium (500 mg) tablet,chewable 200 mg PO BID ferrous sulfate 134 mg (27 mg iron) tablet 134 mg PO ONCE polyethylene glycol 3350 [Miralax] 17 gram/dose powder 17 g PO BID Discharge Orders: Discharge Order (Routine); Ordered 02/27/23 Ordered By: Sylvai Quiroz Patient Education: OB Over the Counter Medication Information, OB /Breast Feeding Additional Instructions: Discharge instructions were reviewed with the patient including signs and symptoms of infection and home going medications Lifting Restrictions: 20 pounds for 6 weeks No not submerge incision under water X 2 weeks? Nothing vaginally for 6 weeks: no tampons or intercourse Do not drive while taking narcotic pain medication(s) Off Work or School for 8 weeks 2-week visit: incision check, discuss feeding concerns, review control options and screen for anxiety/depression. 6-week visit for an annual exam. consultation services are available to all mothers and babies for the first year after delivery.? To make an appointment, please call [phone]. Activity Level: Activity as Tolerated Discharge Diet: Regular Follow Up Appointments: [facility] [Provider Group] Forms: MyHealth Info Instructions
[2023-02-27 08:09] VITALS: BP 102/66; PULSE 82; RESP 16; O2SAT 96
== END 2023-02-27 12:14 | disposition home or self-care (01) | DRG 787 ==
PROVIDERS: Admitting Provider Obstetrics & Gynecology; Visit Provider Obstetrics & Gynecology
PROC: 10D00Z1 Extraction of Products of Conception, Low, Open Approach (ICD-10-PCS; CPT 59514; principal; 2023-02-25 07:15)
DX: O34.211 Maternal care for low transverse scar from previous cesarean delivery (principal); D68.51 Activated protein C resistance; O99.12 Other diseases of the blood and blood-forming organs and certain disorders involving the immune mechanism complicating childbirth; Z3A.40 40 weeks gestation of pregnancy; Z37.0 Single live birth; Z78.9 Other specified health status; G89.18 Other acute postprocedural pain
CPT/HCPCS: 01961; 36415; 64488; 85018; 85025; 86850; 86900; 86901; 88307; A9270; C9290; J0665; J0690; J1100; J1650; J1885; J2274; J2371; J2405; J2590; J7120

== ENCOUNTER 2023-02-28 15:33 | Outpatient (CLI) | payer OTHER, SELFPAY ==
--- NOTE | 2023-02-28 17:00 | W.PM.LAC.MC ---
Consult Note - Mom Date of Visit Date of visit: 02/28/23 business transformation consultant: Cee Oneil Visit Code: Visit Patient's Information Phone number: [phone] : 2 Para: 2 Allergies No Known Drug Allergies Allergy (Verified 03/13/23 08:12) Mother's Medical History: Medical History (Updated 03/08/23 @ 15:44 by Edd Cox MD) heterozygous factor v leiden Delivery Information Delivery type: Repeat Section Weeks Gestation: 40.0 Gestational Age: AGA Weight: 4.045 kg Discharge Weight: 3.692 kg Baby's Information Baby's Age at Visit: 3 days Baby's Provider or Clinic: Dr. Deal Jaundice: Yes (to nipple line) Reason for Consult Reason for Consult: difficulty latching overnight Past Experience Past Experience: Yes (nursed her first son 14 months) Baby Elimination Number of Wet Diapers a Day: baby has had one wet diaper in the past 24 hours Number of BM a Day: baby has had two meconium/transitional stools Onsite Pre-Feed weight: 3.638 kg Post-Feed weight: 3.666 kg Milk Transferred (mL): 28 Assessments/Interventions Assessments/Interventions: Met with mom and this now 3 day old ex- term AGA baby for consult; family was d/c'd yesterday. Mom reports her milk came in yesterday evening and baby had a very difficult time latching overnight. She reports having to hold him almost the entire night or he would cry and fuss. She attempted multiple times to nurse but he wouldn't latch no matter what she tried (different positions, giving him a finger or pacifier to suck on first, expressing a little milk on her nipple). She was able to get him to latch at 0300 this morning for a short feeding, then again at 0600 for a longer feeding, then again at 1300. She states her breasts are very full and painful and she can't express any milk to relieve the pressure with either hand expression or the pump. Breasts are engorged, firm. Nipples are everted and don't flatten or retract on compression, left has some scabbing and mom reports it was a blister that is healing. Baby hasn't started to gain weight from D/C and today is 10% below BW. POC deny any caput/cephalohematoma and also state he seems to have equal ROM when turning his head/moving his extremities. His palate is a little high. His upper lip is a little difficult to flange and the gums timur. He has a fairly strong suck on a finger and the tongue consistently extends past the gum line; there's some canoeing with lateralization. His lower frenulum appears to be WNL. Baby has had one void and two BM's in the past 24 hours (one in clinic after nursing). He's jaundiced to the nipple line. TCB = 7.6. Because mom is so full we practiced breast gymnastics, some gentle breast massage, and a few minutes of hand expression before attempting to latch baby. After a few minutes of readying the breast, baby latched almost immediately to the left side. He nursed for 5 - 7 minutes before getting fussy. Mom burped him and put him back on that side, but he was frustrated and didn't seem to know the nipple was in his mouth. Mom was instructed to switch to the right and he latched immediately, nursing for about 20 minutes. When he came off on the right, mom burped him and offered the left one more time. He latched without difficulty and nursed 5 - 10 minutes more for a total of about 35 minutes. He transferred 28 ml. Mom was measured and a smaller flange size was suggested. Because she was still pretty uncomfortable on the left she tried pumping and got a few drops but then it stopped working. She was able to get a bit more out with hand expression. Plan: 1. Encouraged mom to continue watching for baby's cues and nurse him on demand or at least every three hours. If needed while she's still engorged, try the ideas above to soften the breasts and get the milk flowing to make latching a little easier for baby. Offer both sides and it's ok to switch back and forth if he gets frustrated. 2. Hand express/Haakaa/pump to comfort after nursing if needed. 3. No medical need to give baby any supplement but dad was shown how to give baby the few ml's she expressed by syringe just to top him off. 4. Suggested she try the breast massage 4 times/day to help with the engorgement. Try warm packs around the neck before or while feeding and cool packs on the breast afterwards. 5. Discussed with Dr. Du and rosario to have baby f/u for a weight check on 03/02/23. Will f/u by phone on 03/07/23. Meds Home Medications and Allergies Home Medications Medication Instructions Recorded Confirmed Type ascorbate calcium (vitamin C) 500 600 mg PO QDAY 07/23/22 03/13/23 History mg tablet docusate sodium 100 mg capsule 100 mg PO QDAY 07/23/22 03/13/23 History (Stool Softener) prenat.vits,lesvia,udb-inps-uumlm 1 tab PO QDAY 07/23/22 03/13/23 History aspirin 81 mg tablet,delayed 81 mg PO QDAY 03/13/23 03/13/23 History release (Adult Low Dose Aspirin) Allergies Allergy/AdvReac Type Severity Reaction Status Date / Time No Known Drug Allergies Allergy Verified 03/13/23 08:12
== END 2023-02-28 15:34 | disposition home or self-care (01) ==
PROVIDERS: Visit Provider Obstetrics & Gynecology
DX: Z39.1 Encounter for care and examination of lactating mother (principal)
CPT/HCPCS: G0463

== ENCOUNTER 2023-04-07 11:44 | Outpatient (CLI) | payer OTHER, SELFPAY ==
--- OUTSIDE RECORDS SUMMARY | 2023-04-07 11:48 | XMS_ITS | Clinical Summary ---
Author Name Unknown Organization [facility] Address [place], [place] [address] Care Team Providers Care Elementary Reading Tutor Name Role Phone Unavailable Primary Care Provider Unavailabl e Allergies No known active allergies Medications No known medications Active Problems No known active problems Encounters Date Type Department Care Team Description 02/25/2023 Lab Requisition [facility] [phone] Tanvi Franklin MD from Last 3 Months Social History Tobacco Use Types Packs/Day Years Used Date Smoking Tobacco: Never Assessed Social Connections Answer Date Recorded Frequency of Communication with Friends and Fami ly Not on file 04/17/2021 Financial Resource Strain Answer Date R ecorded Difficulty of Paying Living Expenses Not on file 04/17/2021 Difficulty of Paying Living Expenses Not on file 04/17/2021 Sex and Gender Information Value Date Recorded Sex Assigned at Not on file Gender Identity Not on file Sexual Orientation Not on file Obstetrics History Last Filed Vital Signs Vital Sign Reading Time Taken Comments Blood Pressure 96/62 04/17/2021 8:26 AM MECHANICAL FACILITIES TECHNICIAN Pulse 96 04/17/2021 8:26 AM MECHANICAL FACILITIES TECHNICIAN Temperature 36.6 ??C (97.8 ??F) 04/17/2021 8:26 AM CS T Respiratory Rate 18 04/17/2021 8:26 AM MECHANICAL FACILITIES TECHNICIAN Oxygen Saturation 97% 04/17/2021 8:26 AM MECHANICAL FACILITIES TECHNICIAN Inhaled Oxygen Concentration - - Weight 63.1 kg (139 lb 3.2 oz) 04/17/2021 8:26 A M MECHANICAL FACILITIES TECHNICIAN Height - - Body Mass Index - - Plan of Treatment Health Maintenance Due Date Last Done Comments Tdap 02/19/2003 Depression screening for age 12+ 2004 HIV for age 15-65 02/19/2007 BMI (ht and wt on same day) for age 18+ 02/19/2010 Hepatitis C screening for ag e 18-79 02/19/2010 Tetanus booster 2012 COVID-19 vaccine series ( season) 2022 10/24/2020, 09/26/2020 Influenza for age 9-49 11/01/2022 Pap test for age 21-65 02/02/2023 02/03/2020 Pneumococcal series for age 6-64 Aged Out No longer eligible b ased on patient's age to complete this topic Procedures Procedure Name Priority Date/Time Associated Diagnosis Comments LAB TRACKING EVENT Routine 02/25/2023 8: 10 AM MECHANICAL FACILITIES TECHNICIAN PATH TISSUE EXAM PLACENTA Routine 02/25/2023 8:10 AM MECHANICAL FACILITIES TECHNICIAN from Last 3 Months Results * LAB TRACKING EVENT (02/25/2023 8:10 AM MECHANICAL FACILITIES TECHNICIAN) Other (Other) Client Collect / Unknown 02/25/2023 8:10 AM MECHANICAL FACILITIES TECHNICIAN 02/25/2023 1:27 PM MECHANICAL FACILITIES TECHNICIAN Tavni Franklin MD LAB BILL O NLY [facility] [address] [place], [place] [id number], * PATH TISSUE EXAM PLACENTA (02/25/2023 8:10 AM MECHANICAL FACILITIES TECHNICIAN) Case Report Pathology Report ?Case: [id number] ? Authorizing Provider: ??Tanvi Franklin ??Collected: ? 02/25/2023 0810 ? MD [place] ? Ordering Location: ? [facility] ?Received: ?02/25/2023 1339 ? Pathologist: ? Cee Lockett MD ? Specimen: ?Placenta ? 02/27/2023 12:18 PM MECHANICAL FACILITIES TECHNICIAN [facility] Final Diagnosis A) PLACENTA, DELIVERY: 1. Third trimester petit placenta with the following characteristics: ? a. Weight: 511 grams ? b. Membranes/ surface: ?Pigment consistent with meconium present in membranes ?Negative for chorioamnionitis ? c. Umbilical cord: ?Three vessel cord ?Negative for funisitis ? d. Disc/Villi: ?Chorionic villi consistent with gestational age ?Negative for villitis ?Placental disc without infarcts 02/27/2023 12:18 PM [facility] Comment The histologic findings are that of a mature third trimester placenta. The requested and received delivery note indicates this is a delivery but the estimated gestational age is not indicated. A mean weight percentile for this placenta cannot be provided without a gestational age. Clinical correlation is recommended. 02/27/2023 12:18 PM MECHANICAL FACILITIES TECHNICIAN [facility] Clinical Information Indications for Placental Examination by Pathology / indications: None indicated Maternal indications: History of molar Placental indications: None indicated Infectious specimen (e.g. maternal HIV or HCV): No Clinical information: Date of delivery: 02/25/2023 Time of delivery: 0810 Type of delivery: Live born:Yes Gestational age: Information not provided Sex of infant (s): ??Male Pertinent Maternal History: Maternal parity: Diabetes: No Hypertension: No Eclampsia: No Smoking: No 02/27/2023 12:18 PM MECHANICAL FACILITIES TECHNICIAN [facility] Gross Description A) Received fresh labeled with the patient's name and placenta, is a 511 gram, 24 x 15 x 2.0 cm petit placenta. The surface is blue-freeman with normal vasculature. The 39 cm long, 1.1 cm diameter trivascular umbilical cord is centrally inserted 7 cm from the nearest edge of the placental plate. ??The extraplacental membranes are purple-strauss smooth thin and insert marginally. The maternal surface is red-brown smooth and appears complete. ??Sectioning reveals spongy dark red parenchyma with no discrete fibrous lesions appreciated. ?? Clinical Psychologist sections are submitted: 1. ?? membranes and insertion 2. ??Umbilical cord 3-5. ??Full-thickness central placenta Time and date in formalin: 1425 on 02/25/2023 JPW 02/25/2023 02/27/2023 12:18 PM MECHANICAL FACILITIES TECHNICIAN [facility] Microscopic Description The final diagnosis is based on microscopic examination of appropriate sections of all specimens. 02/27/2023 12:18 PM MECHANICAL FACILITIES TECHNICIAN [facility] Additional [facility] - [address] [address] 02/27/2023 12:18 PM MECHANICAL FACILITIES TECHNICIAN [facility] Tissue SPECIMEN FROM PLACENTA / Unknown 02/25/2023 8:10 AM MECHANICAL FACILITIES TECHNICIAN 02/25/2023 1:39 PM MECHANICAL FACILITIES TECHNICIAN Tanvi Franklin MD PATHOLOGY/ CYTOLOGY [facility] [address] [place] [address], [place] from Last 3 Months
--- OUTSIDE RECORDS SUMMARY | 2023-04-07 11:48 | XMS_ITS | Data Portability ---
Author Name Unknown Address [address] [place] [address] Phone [phone] Organization [facility] Address [address] [facility] [address] [place] [address] Assessment No assessment recorded. Plan of Treatment Reminders Order Date Submit Date Provider Last Modified By Organization Details Last Modified Time Details Appointments None record ed. Lab None record ed. Referral None record ed. Procedures None record ed. Surgeries None record ed. Imaging None record ed. Medication Orders None record ed. Patient TargetsNo targets recorded. Patient InstructionsNo instructions recorded. Reason for Referral None Reported. Procedures Surgical History Date Name Laterality Status Provider Name and Address Organization Details Recorded Time OC-UDS Send Out Template NON DOT completed [facility] 07/28/2022 14:43:25 Imaging Results None recorded. Procedure Notes None recorded. Medical Equipment None Reported. Medications Name Sig Start Date Stop Date Status Note LastModified by Organization Details LastModified Time doxycycline hyclate 100 mg capsule active Not Available Not Available Not Available metronidazole 500 mg tablet active Not Available Not Availabl e Not Available acetaminophen 500 mg tablet TAKE 2 TABS BY MOUTH EVERY 6 HRS NEEDED FOR PAIN. active Not Available Not Available No t Available cephalexin 500 mg capsule TAKE 1 CAPSULE BY MOUTH 4 TIMES A DAY active Not Available Not Available No t Available ibuprofen 600 mg tablet active Not Available Not Available No t Available Vitals None Recorded Social History None recorded. Functional Status None recorded. Mental Status None recorded. Family History Nothing Reported. Medical History No medical history recorded. Gynecological HistoryNo gynecological history recorded. Obstetrics History GPAL:G 0 P 0 0 0 0 Past Encounters Encounter ID Performer Location Encounter Start Date Encounter Closed Date Diagnosis/Indication [id number] [place] [address] [address] [place] [address],[address] [place] [address] 07/28/2022 14:18:31 07/28/2022 14:55:03 History and physical examination, occupation Health Concerns Section Related Observation LastModified by Organization Detai ls LastModified Time None Recorded Concern Status LastModified by Organization Details LastModified Time None Recorded Advance Directives Directive None Recorded Payers Encounter Date Sequence Insurance Name Policy Number Policy [place] Covered Member ID [place] Member ID Guarantor Name 07/28/2022 OC-ESCREEN Generic Employer [employer] Katherine Jim Notes None Recorded OBGyn Episode No OBEpisode recorded.
== END 2023-04-07 11:45 | disposition home or self-care (01) ==
LOC: LKVREF 11:46
PROVIDERS: PCP Family Medicine; Visit Provider Physician Assistant
DX: Z39.2 Encounter for routine postpartum follow-up (principal)
CPT/HCPCS: 84702

== ENCOUNTER 2023-11-07 13:39 | Outpatient (CLI) | payer OTHER, SELFPAY ==
--- OUTSIDE RECORDS SUMMARY | 2023-11-14 10:03 | XMS_ITS | Data Portability ---
Author Organization [facility], [address] Address [address] [facility] [address] [place] [address] Assessment No assessment recorded. Plan of Treatment [...] Encounter Start Date Encounter Closed Date Diagnosis/Indication Diagnosis SNOMED-CT Code Diagnosis ICD10 Code [id number] [place] [address] [address] [place] [address] 07/28/2022 14:18:31 07/28/2022 14:55:03 History and physical examination, occupation 695093854 Z02.1 Health Concerns Section Related Observation LastModified by Organization Detai ls LastModified Time None Recorded Concern Status LastModified by Organization Details LastModified Time None Recorded Advance Directives Directive None Recorded Payers Encounter Date Sequence Insurance Name Policy Number Policy [place] Covered Member ID [place] Member ID Guarantor Name 07/28/2022 OC-ESCREEN Generic Employer [employer] Katherine Jim OBGyn Episode No OBEpisode recorded.
--- OUTSIDE RECORDS SUMMARY | 2023-11-14 10:03 | XMS_ITS | Clinical Summary ---
Author Organization [facility] Address [place], [place] [address] Care Team Providers Care Atmospheric Scientist Name Role Phone Unavailable Primary Care Provider [...] Comments Blood Pressure 96/62 04/17/2021 8:26 AM STEAM PLANT OPERATOR Pulse 96 04/17/2021 8:26 AM STEAM PLANT OPERATOR Temperature 36.6 ??C (97.8 ??F) 04/17/2021 8:26 AM CS T Respiratory Rate 18 04/17/2021 8:26 AM STEAM PLANT OPERATOR Oxygen Saturation 97% 04/17/2021 8:26 AM STEAM PLANT OPERATOR Inhaled Oxygen Concentration - - Weight 63.1 kg (139 lb 3.2 oz) 04/17/2021 8:26 A M STEAM PLANT OPERATOR Height - - Body Mass Index - - Plan of Treatment Health Maintenance Due Date Last Done Comments Tdap 02/19/2003 Depression screening for age 12+ 2004 HIV for age 15-65 02/19/2007 BMI (ht and wt on same day) for age 18+ 02/19/2010 Hepatitis C screening for ag e 18-79 02/19/2010 Tetanus booster 2012 COVID-19 vaccine series ( season) 2023 10/24/2020, 09/26/2020 Influenza for age 9-49 11/02/2023 Pap test for age 21-65 04/07/2026 4, 04/07/2023, 02/03/2020 Pneumococcal series for age 6-64 Aged Out No longer eligible b ased on patient's age to complete this topic Procedures Procedure Name Priority Date/Time Associated Diagnosis Comments HPV THIN PREP Routine 04/07/2023 1:00 PM STEAM PLANT OPERATOR from Last 3 Months or Most Recently Relevant to Health Maintenance Results * HPV HIGH RISK (04/07/2023 1:00 PM STEAM PLANT OPERATOR) TYPE 16 Negative Negative 04/11/2023 6:01 AM STEAM PLANT OPERATOR [facility] TYPE 18 Negative Negative 04/11/2023 6:01 AM STEAM PLANT OPERATOR [facility] OTHER HIGH RISK TYPES Negative Negative 04/11/2023 6:01 AM STEAM PLANT OPERATOR [facility] Other (Cervical) 04/07/2023 1:00 PM STEAM PLANT OPERATOR 04/09/2023 11:39 AM STEAM PLANT OPERATOR Narrative [facility] - 04/11/2023 6:01 AM STEAM PLANT OPERATOR HPV types 16, 18, 31, 33, 35, 39, 45, 51, 52, 56, 58, 59, 66 and 68 DNA were undetectable or below the pre-set threshold. Methodology: Melanie Pedro 4800 HPV Test June Enrique [facility] [address] [address], from Last 3 Months or Most Recently Relevant to Health Maintenance
== END 2023-11-07 13:40 | disposition home or self-care (01) ==
LOC: NFLDREF 11-14 10:01
PROVIDERS: PCP Family Medicine; Referring Provider Family Medicine; Visit Provider Registered Nurse
DX: R35.0 Frequency of micturition (principal)
CPT/HCPCS: 87086